=== PATIENT | male | born 1940 | race Caucasian/White ===

== ENCOUNTER 2018-05-04 14:45 | Inpatient (IN) | payer MEDICARE, BC ==
[2018-05-04] MEDS ORDERED: Cyclobenzaprine 10 MG Tab PO ONE (15:20)
--- NOTE | 2018-05-04 15:27 | EDM.PDOC ---
ED HPI GENERAL MEDICAL PROBLEM - General Chief Complaint: Back Pain or Injury Stated Complaint: LOW BACK PAIN Time Seen by Provider: 05/04/18 15:12 Source of Information: Reports: Patient History Limitations: Reports: No Limitations - History of Present Illness INITIAL COMMENTS - FREE TEXT/NARRATIVE: This patient is a 77 year old male that presents to the ER. Patient arrives via EMS. The patient reports that on Sunday he tripped over the rug at home adn fell. Patient reports since falling he has had lower back pain all across the lower back. Patient reports the pain is made worse with bending, twisting, rotating of the trunk. The son reports the patient struggles getting around at home anyways with his history of MS. The reports the patient was prescribed pain medication, but they just picked up the medication this morning. They also report the patient has not taken the pain medication yet and has not taken anything for his back pain. The patient arrived in the ER with back pain complaint. The patient denies urinary/bowel incontinence. They report patient is able to get around, but struggles to get up or do so. Onset Date: 05/01/18 Duration: Day(s): (3) Location: Reports: Back Front/Back Body Image: 1 - pain. Severity: Mild Improves with: Reports: Immobilization Worsens with: Reports: Movement Context: Reports: Trauma Associated Symptoms: Denies: Confusion, Chest Pain, Cough, cough w sputum, Diaphoresis, Fever/Chills, Headaches, Loss of Appetite, Malaise, Nausea/Vomiting , Rash, Seizure, Shortness of Breath, Syncope, Weakness Lower Back Pain Score (Numeric/FACES): 10 - Related Data Allergies Allergy/AdvReac Type Severity Reaction Status Date / Time hydrocodone Allergy Hallucinati Verified 05/04/18 15:07 ons Home Meds: Home Meds Baclofen 10 mg PO BID 05/04/18 [History] Canagliflozin [Invokana] 300 mg PO DAILY 05/04/18 [History] Dalfampridine [Ampyra] 10 mg PO BID 05/04/18 [History] Losartan [Cozaar] 100 mg PO DAILY 05/04/18 [History] Nortriptyline HCl [Pamelor] 25 mg PO BEDTIME 05/04/18 [History] Solifenacin [Vesicare] 10 mg PO DAILY 05/04/18 [History] Zolpidem [Ambien] 10 mg PO BEDTIME PRN 05/04/18 [History] buPROPion [buPROPion XL] 150 mg PO DAILY 05/04/18 [History] sitaGLIPtin Phos/Metformin HCl [Janumet Xr 50-1,000 mg Tablet] 1 each PO BID [History] Social & Family History - Tobacco Use Smoking Status *Q: Never Smoker - Caffeine Use Caffeine Use: Reports: Coffee - Alcohol Use Days Per Week of Alcohol Use: 2 Number of Drinks Per Day: 1 Total Drinks Per Week: 2 - Recreational Drug Use Recreational Drug Use: No ED ROS GENERAL - Review of Systems Review Of Systems: See Below Constitutional: Reports: No Symptoms HEENT: Reports: No Symptoms Respiratory: Reports: No Symptoms Cardiovascular: Reports: No Symptoms Endocrine: Reports: No Symptoms GI/Abdominal: Reports: No Symptoms : Reports: No Symptoms Musculoskeletal: Reports: Back Pain (lower), Muscle Pain (lower back) Skin: Reports: No Symptoms Neurological: Reports: No Symptoms Psychiatric: Reports: No Symptoms Hematologic/Lymphatic: Reports: No Symptoms Immunologic: Reports: No Symptoms ED EXAM,LOWER BACK PAIN/INJURY - Physical Exam Exam: See Below Exam Limited By: No Limitations General Appearance: Alert, WD/WN, No Apparent Distress Eye Exam: Bilateral Eye: PERRL Ears: Normal External Exam (left ear. rigth ear deformed), Normal Canal, Hearing Grossly Normal, Normal TMs (left ear) Nose: Normal Inspection, Normal Mucosa, No Blood Throat/Mouth: Normal Inspection, Normal Lips, Normal Teeth, Normal Gums, Normal Oropharynx, Normal Voice, No Airway Compromise Head: Atraumatic, Normocephalic Neck: Normal Inspection, Supple, Non-Tender, Full Range of Motion Respiratory/Chest: No Respiratory Distress, Lungs Clear, Normal Breath Sounds, No Accessory Muscle Use, Chest Non-Tender Cardiovascular: Normal Peripheral Pulses, Regular Rate, Rhythm, No Edema, No Gallop, No JVD, No Murmur, No Rub GI/Abdominal: Normal Bowel Sounds, Soft, Non-Tender, No Organomegaly, No Distention, No Abnormal Bruit, No Mass, Pelvis Stable Back Exam: Normal Inspection, Full Range of Motion (with pain all across lower back with bending, twisting, rotating of the trunk. ). No: Decreased Range of Motion, Muscle Spasm, Paraspinal Tenderness, Vertebral Tenderness Extremities: Normal Inspection, Normal Range of Motion, Non-Tender, Normal Capillary Refill, Pedal Edema (+1) Neurological: Alert, Oriented x 3 Psychiatric: Normal Affect, Normal Mood Skin Exam: Warm, Dry, Intact, Normal Color, No Rash Lymphatic: No Adenopathy Course - Vital Signs Last Recorded V/S: Last Vital Signs Temp 98.0 F 05/04/18 14:56 Pulse 82 05/04/18 14:56 Resp 16 05/04/18 14:56 BP 135/77 05/04/18 14:56 Pulse Ox 95 05/04/18 14:56 - Orders/Labs/Meds Orders: Active Orders 24 hr Category Date Time Status Lumbar Spine 2 or 3V [CR] Stat Exams 05/04/18 15:20 Taken Meds: Medications Discontinued Medications Generic Name Dose Route Start Last Admin Trade Name Freq PRN Reason Stop Dose Admin Cyclobenzaprine HCl 10 mg 05/04/18 15:20 05/04/18 15:26 Flexeril PO 05/04/18 15:21 10 mg ONETIME ONE Administration - Radiology Interpretation Free Text/Narrative:: Lumbar Spine: No fx, no dislocation. - Re-Assessments/Exams Free Text/Narrative Re-Assessment/Exam: 05/04/18 16:13 This patient is not able to go home. He can not move in the stretcher. The patient has not been able to move at home. He has not been able to get up from this chair. He required assistance from his son, but was still unable to move from his chair. The patient is not able to perform his ADLS on his won. The and son are not able to help the patient ambulate or move or perform ADLs.The and son report they are are unable to care for the patient at home. I will admit the patient and help control his pain, will consult with social cervices about other possible living situations. The patient also has MS and has declining in mobility per family. Departure - Departure Time of Disposition: 15:30 Disposition: Admitted As Inpatient 67 Condition: Fair Clinical Impression: Adult failure to thrive Lumbar strain Qualifiers: Encounter type: initial encounter Qualified Code(s): S39.012A - Strain of muscle, fascia and tendon of lower back, initial encounter - Discharge Information *PRESCRIPTION DRUG MONITORING PROGRAM REVIEWED*: No *COPY OF PRESCRIPTION DRUG MONITORING REPORT IN PATIENT CURTIS: No Instructions: Low Back Sprain, Muscle Strain, [id number] Forms: ED Department Discharge - My Orders Last 24 Hours: My Active Orders 05/04/18 15:20 Lumbar Spine 2 or 3V [CR] Stat - Assessment/Plan Last 24 Hours: My Active Orders 05/04/18 15:20 Lumbar Spine 2 or 3V [CR] Stat Plan: PLEASE SEE RN NOTE FOR PFSH. PLEASE USE ER H&P FOR ADMIT H&P
[2018-05-04] MEDS ORDERED: Acetaminophen 325 MG Tab PO PRN (18:43)
[2018-05-04] MEDS ORDERED: Morphine 2 MG/ML Syringe IVPUSH PRN (18:43)
[2018-05-04] MEDS ORDERED: Zolpidem 5 MG Tab PO PRN (18:43)
[2018-05-04] MEDS ORDERED: Ibuprofen 200 MG Tab PO PRN (18:43)
[2018-05-04] MEDS ORDERED: Docusate Sodium 100 MG Cap PO PRN (18:43)
[2018-05-04] MEDS ORDERED: Ondansetron 4 MG/2 ML SDV IV PRN (18:43)
[2018-05-04] MEDS ORDERED: Diphtheria,Pertussis(Acell),Tetanus Vaccine 0.5 ML Syringe IM ONE (20:00)
[2018-05-04] MEDS: DALFAMPRIDINE 10 MG PO SCH (20:07)
[2018-05-04] MEDS: Mirtazapine 15 MG Tab PO SCH (20:08)
[2018-05-04] MEDS: Baclofen 10 MG Tab PO SCH (20:08)
[2018-05-04] MEDS: Trospium 20 MG Tab PO SCH (20:08)
[2018-05-04] MEDS: Enoxaparin 40 MG/0.4 ML Syringe SUBCUT SCH (20:08)
[2018-05-05] MEDS ORDERED: Non-Formulary Medication 1 Each (Omega-3/Dha/Epa/Fish Oil [Omega-3 Fish Oil 1,200 Mg Sfgl] PO SCH (08:00)
[2018-05-05] MEDS: Aspirin 325 MG Tab PO SCH (08:05)
[2018-05-05 08:08] LABS: CHLORIDE,CL 103 mEq/L (98-106); SODIUM,NA 142 mEq/L (136-145)
[2018-05-05] MEDS: Losartan 100 MG Tab PO SCH (08:09)
[2018-05-05] MEDS: DALFAMPRIDINE 10 MG PO SCH ×2 (08:10→20:03)
[2018-05-05] MEDS: CANAGLIFLOZIN 300 MG PO SCH (08:10)
[2018-05-05] MEDS: Baclofen 10 MG Tab PO SCH ×2 (08:10→20:02)
[2018-05-05] MEDS: Multivitamin Tab PO SCH (08:11)
[2018-05-05] MEDS: Polyethylene Glycol 3350 Powder 17 GM Packet PO SCH (08:11)
[2018-05-05] MEDS: Trospium 20 MG Tab PO SCH ×2 (08:11→20:02)
[2018-05-05] MEDS: Metoprolol Succinate 100 MG Tab.ER PO SCH (08:11)
[2018-05-05] MEDS: Cholecalciferol (Vitamin D3) 1,000 Unit Tab PO SCH (08:11)
[2018-05-05] MEDS: buPROPion 150 MG Tab.ER PO SCH (08:12)
[2018-05-05] MEDS: traMADol 50 MG Tab PO PRN ×2 (08:20→17:13)
[2018-05-05] MEDS ORDERED: Bacitracin Oint 28.35 GM Tube ONE (10:10)
--- NOTE | 2018-05-05 12:26 | PCM.PN ---
- General Info Date of Service: 05/05/18 Subjective Update: This patient is a 77 year old admitted for back pain, immobility, vulerable adult. Functional Status: Reports: Tolerating Diet, Other (Patient reports still havintg a lot of pain. He says after taking pain medication that it does improve some. ). Denies: Ambulating - Review of Systems General: Reports: Weakness (generalized. ) HEENT: Reports: No Symptoms Pulmonary: Reports: No Symptoms Cardiovascular: Reports: No Symptoms Gastrointestinal: Reports: No Symptoms Genitourinary: Reports: No Symptoms Musculoskeletal: Reports: Back Pain Skin: Reports: No Symptoms Neurological: Reports: No Symptoms Psychiatric: Reports: No Symptoms - Patient Data Vitals - Most Recent: Last Vital Signs Temp 97.6 F 05/05/18 07:55 Pulse 74 05/05/18 08:11 Resp 16 05/05/18 07:55 BP 132/81 05/05/18 08:11 Pulse Ox 97 05/05/18 07:55 Weight - Most Recent: 224 lb 4.8 oz Lab Results Last 24 Hours: Laboratory Results - last 24 hr 05/05/18 05/05/18 Range/Units 07:44 07:44 WBC 8.5 (5.0-10.0) 10^3/uL RBC 5.12 (4.50-6.00) 10^6/uL Hgb 15.5 (14.0-18.0) g/dL Hct 47.2 (40.0-54.0) % MCV 92.2 (82.0-94.0) fL MCH 30.3 (27.0-32.0) pg MCHC 32.8 L (33.0-38.0) g/dL RDW Coeff of Deng 13.8 (11.0-15.0) % Plt Count 180 (150-400) 10^3/uL Neut % (Auto) 61.5 (35-85) % Lymph % (Auto) 22.5 (10-55) % [place] % (Auto) 11.4 (0-16) % Eos % (Auto) 4.4 (0-5) % Baso % (Auto) 0.2 (0-3) % Neut # (Auto) 5.22 (1.80-7.00) 10^3/uL Lymph # (Auto) 1.91 (1.00-4.80) 10^3/uL [place] # (Auto) 0.97 H (0.00-0.80) 10^3/uL Eos # (Auto) 0.37 (0.00-0.45) 10^3/uL Baso # (Auto) 0.02 10^3/uL Sodium 142 (136-145) mEq/L Potassium 4.1 (3.5-5.0) mEq/L Chloride 103 (98-106) mEq/L Carbon Dioxide 32 (21-32) mmol/L BUN 13 (7-18) mg/dL Creatinine 1.1 (0.7-1.3) mg/dL Est Cr Clr Drug Dosing 62.71 mL/min Estimated GFR (MDRD) > 60 (>=60) mL/min Glucose 108 H (75-99) mg/dL Calcium 9.1 (8.4-10.1) mg/dL Total Bilirubin 0.9 (0.0-1.0) mg/dL AST 25 (15-37) U/L ALT 32 (12-78) U/L Alkaline Phosphatase 63 (46-116) U/L Total Protein 7.1 (6.4-8.2) g/dL Albumin 3.1 L (3.4-5.0) g/dL Med Orders - Current: Current Medications Acetaminophen (Tylenol) 650 mg PO Q4H PRN PRN Reason: Pain (Mild 1-3)/fever Aspirin (Aspirin) 325 mg PO DAILY [facility] Last Admin: 05/05/18 08:05 Dose: 325 mg Bacitracin (Bacitracin Oint) 0 gm TOP TID [facility] Baclofen (Lioresal) 10 mg PO BID [facility] Last Admin: 05/05/18 08:10 Dose: 10 mg Bupropion HCl (Wellbutrin Xl) 150 mg PO DAILY [facility] Last Admin: 05/05/18 08:12 Dose: 150 mg Cholecalciferol (Vitamin D3) 1,000 units PO DAILY [facility] Last Admin: 05/05/18 08:11 Dose: 1,000 units Docusate Sodium (Colace) 100 mg PO BID PRN PRN Reason: Constipation Enoxaparin Sodium (Lovenox) 40 mg SUBCUT Q24H [facility] Last Admin: 05/04/18 20:08 Dose: 40 mg Ibuprofen (Motrin) 600 mg PO Q6H PRN PRN Reason: Pain (mild 1-3) Losartan Potassium (Cozaar) 100 mg PO DAILY [facility] Last Admin: 05/05/18 08:09 Dose: 100 mg Metoprolol Succinate (Toprol Xl) 100 mg PO DAILY [facility] Last Admin: 05/05/18 08:11 Dose: 100 mg Mirtazapine (Remeron) 30 mg PO BEDTIME [facility] Last Admin: 05/04/18 20:08 Dose: 30 mg Morphine Sulfate (Morphine) 2 mg IVPUSH Q2H PRN PRN Reason: Pain (severe 7-10) Multivitamins/Minerals/Vitamin C (Tab-A-Tarsha) 1 tab PO DAILY [facility] Last Admin: 05/05/18 08:11 Dose: 1 tab Patients Med( Canagliflozin [ Invokana] 300 Mg) 300 mg PO DAILY [facility] Last Admin: 05/05/18 08:10 Dose: 300 mg Patients Own ( Dalfampridine [ Ampyra] 10 Mg) 10 mg PO BID [facility] Last Admin: 05/05/18 08:10 Dose: 10 mg Non-Formulary Medication (Nortriptyline Hcl [Pamelor]) 25 mg PO BEDTIME [facility] Non-Formulary Medication ([place]-3/Dha/Epa/Fish Oil [[place]-3 Fish Oil 1,200 Mg Sfgl]) 1,200 mg PO DAILY [facility] Non-Formulary Medication (Sitagliptin Phos/Metformin Hcl [Janumet Xr 50-1,000 Mg Tablet]) 1 each PO BID [facility] Ondansetron HCl (Zofran) 4 mg IV Q6H PRN PRN Reason: Nausea/Vomiting Polyethylene Glycol (Miralax) 17 gm PO DAILY [facility] Last Admin: 05/05/18 08:11 Dose: 17 gm Tramadol HCl (Ultram) 50 mg PO Q6H PRN PRN Reason: Pain Last Admin: 05/05/18 08:20 Dose: 50 mg Trospium (Sanctura) 20 mg PO BID [facility] Last Admin: 05/05/18 08:11 Dose: 20 mg Zolpidem Tartrate (Ambien) 10 mg PO BEDTIME PRN PRN Reason: Insomnia Discontinued Medications Bacitracin (Bacitracin Oint) Confirm Administered Dose 28.35 gm .ROUTE .STK-MED ONE Stop: 05/05/18 10:11 Last Admin: 05/05/18 10:45 Dose: Not Given Cyclobenzaprine HCl (Flexeril) 10 mg PO ONETIME ONE Stop: 05/04/18 15:21 Last Admin: 05/04/18 15:26 Dose: 10 mg Diphtheria/Tetanus/Acell Pertussis (Adacel) 0.5 ml IM .ONCE ONE Stop: 05/04/18 20:01 Last Admin: 05/04/18 20:36 Dose: 0.5 ml - Exam General: Alert, Oriented, Cooperative, No Acute Distress Neck: Supple Lungs: Clear to Auscultation, Normal Respiratory Effort Cardiovascular: Regular Rate, Regular Rhythm, No Murmurs GI/Abdominal Exam: Soft, Non-Tender, Distended Back Exam: Normal Inspection, Decreased Range of Motion (due to pain of bending and twisting of the trunk). No: Vertebral Tenderness (L1 possible fx per radiology report. But NO tenderness point at L1. ) Extremities: Normal Inspection, Normal Range of Motion, Non-Tender, Normal Capillary Refill, Pedal Edema (+1) Peripheral Pulses: 2+: Radial (L), Radial (R), Posterior Tibial (L), Posterior Tibial (R), Dorsalis Pedis (L), Dorsalis Pedis (R) Skin: Warm, Dry, Intact Neurological: No New Focal Deficit Psy/Mental Status: Alert, Normal Affect, Normal Mood - Problem List Review Problem List Initiated/Reviewed/Updated: Yes - My Orders Last 24 Hours: My Active Orders 05/04/18 15:20 Lumbar Spine 2 or 3V [CR] Stat 05/04/18 17:56 Resuscitation Status Routine 05/04/18 18:43 Patient Status [ADT] Routine Notify Provider Vital Signs [RC] .PRN Oxygen Therapy [RC] .PRN Up With Assistance [RC] .PRN Up to Chair [RC] .PRN Consult to Case Management/Sales Development Associate [CONS] Routine Acetaminophen [Tylenol] 650 mg PO Q4H PRN Docusate Sodium [Colace] 100 mg PO BID PRN Ibuprofen [Motrin] 600 mg PO Q6H PRN Morphine 2 mg IVPUSH Q2H PRN Ondansetron [Zofran] 4 mg IV Q6H PRN Zolpidem [Ambien] 10 mg PO BEDTIME PRN traMADol [Ultram] 50 mg PO Q6H PRN Antiembolic Hose [OM.PC] Per Unit Routine 05/04/18 19:25 Vaccines to be Administered [RC] PER UNIT ROUTINE 05/04/18 20:00 Vital Signs [RC] 0800,2000 Baclofen [Lioresal] 10 mg PO BID Dalfampridine [Ampyra] 10 mg PO BID Enoxaparin [Lovenox] 40 mg SUBCUT Q24H Mirtazapine [Remeron] 30 mg PO BEDTIME Nortriptyline HCl [Pamelor] 25 mg PO BEDTIME Trospium [Sanctura] 20 mg PO BID sitaGLIPtin Phos/Metformin HCl [Janumet Xr 50-1,000 mg Tablet] 1 each PO BID 05/04/18 Dinner Consistent Carbohydrate Diet [DIET] 05/05/18 08:00 Aspirin 325 mg PO DAILY Canagliflozin [Invokana] 300 mg PO DAILY Cholecalciferol (Vitamin D3) [Vitamin D3] 1,000 units PO DAILY Losartan [Cozaar] 100 mg PO DAILY Metoprolol Succinate [Toprol XL] 100 mg PO DAILY Multivitamins [Tab-A-Tarsha] 1 tab PO DAILY Pal[place]-3/DHA/Epa/Fish Oil [Palco-3 Fish Oil 1,200 MG Sfgl] 1,200 mg PO DAILY Polyethylene Glycol 3350 [MiraLAX] 17 gm PO DAILY buPROPion [Wellbutrin XL] 150 mg PO DAILY 05/05/18 11:49 OT Evaluation and Treatment [CONS] Routine PT Evaluation and Treatment [CONS] Routine 05/05/18 11:50 Enema [RC] PRN 05/05/18 14:00 Bacitracin [Bacitracin Oint] 0 gm TOP TID - Plan Plan:: This patient was admitted due to lower back pain and immobility with vulnerable adult. THe patient has had to have a lift with two staff members to lift him from the chair in the room. THe patient is very difficult to move even with two person assist. The patient still reports having lower back pain bialteral sides. He report the pain is okay when sitting in chair, but any movement makes the pain worse. Denies urinary/bowel incontinence, saddle parathesia, numbness, tingling loss of motor to legs from baseline. Labs unremarkable. Will continue plan and have licensed clinical social worker consult. Due to patient back pain, history of MS, and patient inability to get up from chair without significant assistance, I will order an MRI to be done of lumbar.
[2018-05-05] MEDS: Bacitracin Oint 28.35 GM Tube TOP SCH ×2 (13:43→20:02)
[2018-05-05] MEDS: Mirtazapine 15 MG Tab PO SCH (20:02)
[2018-05-05] MEDS: Enoxaparin 40 MG/0.4 ML Syringe SUBCUT SCH (20:03)
[2018-05-06] MEDS: Aspirin 325 MG Tab PO SCH (07:48)
[2018-05-06] MEDS: Bacitracin Oint 28.35 GM Tube TOP SCH ×3 (07:49→19:47)
[2018-05-06] MEDS: CANAGLIFLOZIN 300 MG PO SCH (07:49)
[2018-05-06] MEDS: Losartan 100 MG Tab PO SCH (07:49)
[2018-05-06] MEDS: buPROPion 150 MG Tab.ER PO SCH (07:50)
[2018-05-06] MEDS: DALFAMPRIDINE 10 MG PO SCH ×2 (07:50→19:48)
[2018-05-06] MEDS: Polyethylene Glycol 3350 Powder 17 GM Packet PO SCH (07:51)
[2018-05-06] MEDS: Baclofen 10 MG Tab PO SCH ×2 (07:51→19:46)
[2018-05-06] MEDS: Trospium 20 MG Tab PO SCH ×2 (07:51→19:46)
[2018-05-06] MEDS: Multivitamin Tab PO SCH (07:51)
[2018-05-06] MEDS: Metoprolol Succinate 100 MG Tab.ER PO SCH (07:52)
[2018-05-06] MEDS: Cholecalciferol (Vitamin D3) 1,000 Unit Tab PO SCH (07:52)
[2018-05-06] MEDS: METFORMIN HCL PO SCH ×3 (09:22→23:50)
[2018-05-06] MEDS: SITAGLIPTIN PHOS PO SCH ×3 (09:22→23:50)
[2018-05-06] MEDS: traMADol 50 MG Tab PO PRN (09:23)
[2018-05-06] MEDS: NORTRIPTYLINE HCL 25 MG PO SCH ×2 (09:25→23:49)
--- NOTE | 2018-05-06 12:58 | PCM.PN ---
- General Info Date of Service: 05/06/18 Admission Dx/Problem (Free Text): Back Pain Subjective Update: This patient is a 77 year old admitted for back pain, immobility, vulerable adult. Functional Status: Reports: Pain Controlled, Tolerating Diet, Urinating. Denies : Ambulating - Review of Systems General: Reports: Weakness. Denies: Fever, Fatigue HEENT: Reports: No Symptoms Pulmonary: Denies: Shortness of Breath, Cough Cardiovascular: Denies: Chest Pain, Edema, Lightheadedness Gastrointestinal: Reports: Constipation (constipation resolved. Had fleets enema over the weekend with good results. Since started Miralax and Colace PRN) . Denies: Abdominal Pain, Nausea, Vomiting Genitourinary: Reports: Frequency, Urgency Musculoskeletal: Reports: Back Pain Skin: Reports: No Symptoms Neurological: Reports: Weakness - Patient Data Vitals - Most Recent: Last Vital Signs Temp 96.8 F 05/06/18 08:00 Pulse 75 05/06/18 08:00 Resp 20 05/06/18 08:00 BP 147/83 H 05/06/18 08:00 Pulse Ox 100 05/06/18 08:00 Weight - Most Recent: 224 lb 4.8 oz Lab Results Last 24 Hours: Laboratory Results - last 24 hr 05/05/18 Range/Units 15:33 Urine Color Yellow (YELLOW) Urine Appearance Clear (CLEAR) Urine pH 5.5 (4.5-8.0) Ur Specific [place] 1.015 (1.003-1.020) Urine Protein Trace H (NEGATIVE) mg/dL Urine Glucose (UA) 500 H (NEGATIVE) mg/dL Urine Ketones Trace H (NEGATIVE) mg/dL Urine Occult Blood Trace-intact H (NEGATIVE) Urine Nitrite Negative (NEGATIVE) Urine Bilirubin Negative (NEGATIVE) Urine Urobilinogen 0.2 (0.2-1.0) EU/dL Ur Leukocyte Esterase Negative (NEGATIVE) Urine RBC Not seen (0-5) /HPF Urine WBC Not seen (0-5) /HPF Med Orders - Current: Current Medications Acetaminophen (Tylenol) 650 mg PO Q4H PRN PRN Reason: Pain (Mild 1-3)/fever Aspirin (Aspirin) 325 mg PO DAILY [facility] Last Admin: 05/06/18 07:48 Dose: 325 mg Bacitracin (Bacitracin Oint) 0 gm TOP TID [facility] Last Admin: 05/06/18 07:49 Dose: 1 applic Baclofen (Lioresal) 10 mg PO BID [facility] Last Admin: 05/06/18 07:51 Dose: 10 mg Bupropion HCl (Wellbutrin Xl) 150 mg PO DAILY [facility] Last Admin: 05/06/18 07:50 Dose: 150 mg Cholecalciferol (Vitamin D3) 1,000 units PO DAILY [facility] Last Admin: 05/06/18 07:52 Dose: 1,000 units Docusate Sodium (Colace) 100 mg PO BID PRN PRN Reason: Constipation Last Admin: 05/06/18 09:23 Dose: 100 mg Enoxaparin Sodium (Lovenox) 40 mg SUBCUT Q24H [facility] Last Admin: 05/05/18 20:03 Dose: 40 mg Ibuprofen (Motrin) 600 mg PO Q6H PRN PRN Reason: Pain (mild 1-3) Losartan Potassium (Cozaar) 100 mg PO DAILY [facility] Last Admin: 05/06/18 07:49 Dose: 100 mg Metoprolol Succinate (Toprol Xl) 100 mg PO DAILY [facility] Last Admin: 05/06/18 07:52 Dose: 100 mg Mirtazapine (Remeron) 30 mg PO BEDTIME [facility] Last Admin: 05/05/18 20:02 Dose: 30 mg Morphine Sulfate (Morphine) 2 mg IVPUSH Q2H PRN PRN Reason: Pain (severe 7-10) Multivitamins/Minerals/Vitamin C (Tab-A-Tarsha) 1 tab PO DAILY [facility] Last Admin: 05/06/18 07:51 Dose: 1 tab Patients Med( Canagliflozin [ Invokana] 300 Mg) 300 mg PO DAILY [facility] Last Admin: 05/06/18 07:49 Dose: 300 mg Patients Own ( Dalfampridine [ Ampyra] 10 Mg) 10 mg PO BID [facility] Last Admin: 05/06/18 07:50 Dose: 10 mg Non-Formulary Medication ([place]-3/Dha/Epa/Fish Oil [[place]-3 Fish Oil 1,200 Mg Sfgl]) 1,200 mg PO DAILY [facility] *Ptom Sitagliptin Phos/Metformin Hcl [ Janumet Xr 50-1,000 Mg Tab] 1 each PO BID [facility] Last Admin: 05/06/18 09:22 Dose: 1 each Ptom Nortriptyline Hcl [ Pamelor] 25 Mg 25 mg PO BEDTIME [facility] Ondansetron HCl (Zofran) 4 mg IV Q6H PRN PRN Reason: Nausea/Vomiting Polyethylene Glycol (Miralax) 17 gm PO DAILY [facility] Last Admin: 05/06/18 07:51 Dose: 17 gm Tramadol HCl (Ultram) 50 mg PO Q6H PRN PRN Reason: Pain Last Admin: 05/06/18 09:23 Dose: 50 mg Trospium (Sanctura) 20 mg PO BID [facility] Last Admin: 05/06/18 07:51 Dose: 20 mg Zolpidem Tartrate (Ambien) 10 mg PO BEDTIME PRN PRN Reason: Insomnia Last Admin: 05/05/18 20:02 Dose: 10 mg Discontinued Medications Bacitracin (Bacitracin Oint) Confirm Administered Dose 28.35 gm .ROUTE .STK-MED ONE Stop: 05/05/18 10:11 Last Admin: 05/05/18 10:45 Dose: Not Given Cyclobenzaprine HCl (Flexeril) 10 mg PO ONETIME ONE Stop: 05/04/18 15:21 Last Admin: 05/04/18 15:26 Dose: 10 mg Diphtheria/Tetanus/Acell Pertussis (Adacel) 0.5 ml IM .ONCE ONE Stop: 05/04/18 20:01 Last Admin: 05/04/18 20:36 Dose: 0.5 ml Ptom Nortriptyline Hcl [ Pamelor] 25 Mg 25 mg PO BEDTIME [facility] Last Admin: 05/06/18 09:25 Dose: Not Given - Exam General: Alert, Oriented HEENT: Mucous Membr. Moist/[place] Neck: Supple Lungs: Clear to Auscultation, Normal Respiratory Effort Cardiovascular: Regular Rate, Regular Rhythm GI/Abdominal Exam: Normal Bowel Sounds, Soft, Non-Tender Back Exam: No: Vertebral Tenderness Extremities: Normal Inspection, No Pedal Edema Skin: Warm, Dry Neurological: No New Focal Deficit - Problem List & Annotations (1) Lumbar strain SNOMED Code(s): 222074651 Code(s): S39.012A - STRAIN OF MUSCLE, FASCIA AND TENDON OF LOWER BACK, INIT Status: Acute Current Visit: No Qualifiers: Encounter type: initial encounter Qualified Code(s): S39.012A - Strain of muscle, fascia and tendon of lower back, initial encounter - Problem List Review Problem List Initiated/Reviewed/Updated: Yes - Assessment Assessment:: Lumbar Strain History of MS - Plan Plan:: This patient was admitted due to lower back pain and immobility with vulnerable adult. THe patient has had to have a lift with two staff members to lift him from the chair in the room. THe patient is very difficult to move even with two person assist. The patient still reports having lower back pain bialteral sides. He report the pain is okay when sitting in chair, but any movement makes the pain worse. Denies urinary/bowel incontinence, saddle parathesia, numbness, tingling loss of motor to legs from baseline. Labs unremarkable. Will continue plan and have psychiatric social worker supervisor consult. Due to patient back pain, history of MS, and patient inability to get up from chair without significant assistance, I will order an MRI to be done of lumbar. 05-06-2018 Patient admits to improvement of the pain. No pain with lying in bed, admits that pain increases with getting up from bed or chair. Weakness in legs. No vertebral tenderness with exam, more to the right lateral musculature. Family relates progressive weakness in his legs. Insists in wanting to ambulate at home and per son, falls frequently as a result. is hesitant about admitting that their is concern with his care other than the last month but children say it has worsened over the last year. They express concern about his ability to remain in the home as does have a difficult time caring for him. He does see Dr. Gates for his progressive MS, is currently medicated for this and stable but patient has declined considerably over the last year. MRI is scheduled tomorrow of his lumbar spine due to concern of a questionable compression fracture. Discussed awaiting physical therapy report on his status, may need to obtain a CAST study to determine home safety. Did discuss caregiver burn out as well as is struggling more with ability to care for patient. Children concerned. Tramadol as needed for pain and patient encouraged to utilize to determine if tolerable without side effects.
[2018-05-06] MEDS: Mirtazapine 15 MG Tab PO SCH (19:46)
[2018-05-06] MEDS: Enoxaparin 40 MG/0.4 ML Syringe SUBCUT SCH (19:47)
[2018-05-06] MEDS ORDERED: NORTRIPTYLINE HCL 25 MG PO SCH (20:00)
[2018-05-07] MEDS: Metoprolol Succinate 100 MG Tab.ER PO SCH (08:24)
[2018-05-07] MEDS: Multivitamin Tab PO SCH (08:24)
[2018-05-07] MEDS: Cholecalciferol (Vitamin D3) 1,000 Unit Tab PO SCH (08:24)
[2018-05-07] MEDS: Polyethylene Glycol 3350 Powder 17 GM Packet PO SCH (08:24)
[2018-05-07] MEDS: Losartan 100 MG Tab PO SCH (08:24)
[2018-05-07] MEDS: Baclofen 10 MG Tab PO SCH (08:24)
[2018-05-07] MEDS: buPROPion 150 MG Tab.ER PO SCH (08:25)
[2018-05-07] MEDS: Bacitracin Oint 28.35 GM Tube TOP SCH (08:25)
[2018-05-07] MEDS: Aspirin 325 MG Tab PO SCH (08:25)
[2018-05-07] MEDS: Trospium 20 MG Tab PO SCH (08:25)
[2018-05-07] MEDS: SITAGLIPTIN PHOS PO SCH (08:26)
[2018-05-07] MEDS: METFORMIN HCL PO SCH (08:26)
[2018-05-07] MEDS: CANAGLIFLOZIN 300 MG PO SCH (08:27)
[2018-05-07] MEDS: DALFAMPRIDINE 10 MG PO SCH (08:27)
--- NOTE | 2018-05-07 20:21 | PCM.DCSUM1 ---
Discharge Summary - Hospital Course Free Text/Narrative:: Zak is a 77 year old who was admitted from the ER with complaints of low back pain. He had been having issues with back pain for about a month, had been on muscle relaxants. Patient had initially had back pain after sitting in a reclining vibrating chair. Now has fallen after tripping over a rug. Patient states pain is worse with bending, twisting and getting up from the chair. Patient does have a history of MS and has been struggling more since the fall. He was prescribed pain medication but did not pick it up until day of presentation to the ER. Xrays taken with concern of compression fracture of lumbar spine. Admitted for pain control, physical therapy and consideration for placement if needed. Diagnosis: Stroke: No Modified Jorge A Scale: No Symptoms at All Modified [place] Scale Score: 0 - Discharge Data Discharge Date: 05/07/18 Discharge Disposition: DC/Tfer W/I Hosp To Swing Condition: Good - Discharge Diagnosis/Problem(s) (1) Lumbar strain SNOMED Code(s): 182305425 ICD Code: S39.012A - STRAIN OF MUSCLE, FASCIA AND TENDON OF LOWER BACK, INIT Status: Acute Qualifiers: Encounter type: initial encounter Qualified Code(s): S39.012A - Strain of muscle, fascia and tendon of lower back, initial encounter - Patient Summary/Data Complications: none Consults: Consultations 05/04/18 18:43 Consult to Case Management/Commercial Drafter [CONS] Routine 05/05/18 11:49 OT Evaluation and Treatment [CONS] Routine PT Evaluation and Treatment [CONS] Routine Hospital Course: Patient has been making slow progress with ambulating/exercises. He denies any back pain today, has been pain free for 24 hours. Had MRI today of lumbar spine. Family conference was held with patient, and son and daughter. Children are concerned about 's ability to care for him at home any longer as he has been struggling more over the last year, falling more. Patient has been resistant to any placement or assistance. Is working with PT, making small strides. PT unsure if can safely discharge home. May need to consider a CAST study for home safety. Transfer to swing bed status for ongoing PT and determination if able to return home. - Discharge Plan *PRESCRIPTION DRUG MONITORING PROGRAM REVIEWED*: No *COPY OF PRESCRIPTION DRUG MONITORING REPORT IN PATIENT CURTIS: No Home Medications: Home Meds Aspirin 325 mg PO DAILY 05/04/18 [History] Baclofen 10 mg PO BID 05/04/18 [History] Canagliflozin [Invokana] 300 mg PO DAILY 05/04/18 [History] Cholecalciferol (Vitamin D3) [Vitamin D3] 1,000 units PO DAILY 05/04/18 [History ] Cyclobenzaprine HCl 10 mg PO TID PRN 05/04/18 [History] Dalfampridine [Ampyra] 10 mg PO BID 05/04/18 [History] Losartan [Cozaar] 100 mg PO DAILY 05/04/18 [History] Metoprolol Succinate 100 mg PO DAILY 05/04/18 [History] Mirtazapine 30 mg PO DAILY 05/04/18 [History] Multivitamin with Minerals [Multiple Vitamin] 1 tab PO DAILY 05/04/18 [History] Nortriptyline HCl [Pamelor] 25 mg PO BEDTIME 05/04/18 [History] [place]-3/DHA/Epa/Fish Oil [[place]-3 Fish Oil 1,200 MG Sfgl] 1,200 mg PO DAILY [History] Solifenacin [Vesicare] 10 mg PO DAILY 05/04/18 [History] Zolpidem [Ambien] 10 mg PO BEDTIME PRN 05/04/18 [History] buPROPion [buPROPion XL] 150 mg PO DAILY 05/04/18 [History] sitaGLIPtin Phos/Metformin HCl [Janumet Xr 50-1,000 mg Tablet] 1 each PO BID [History] traMADol HCl [Tramadol HCl] 50 mg PO Q6H PRN 05/04/18 [History] Patient Handouts: Low Back Sprain, Muscle Strain, [id number] Forms: ED Department Discharge Referrals: Karson Tinoco MD [Primary Care Provider] - - Discharge Summary/Plan Comment DC Time >30 min.: No Discharge Summary/Plan Comment: Transfer to swing bed status for ongoing physical therapy. - General Info Date of Service: 05/07/18 Admission Dx/Problem (Free Text: Back Pain Functional Status: Reports: Pain Controlled, Tolerating Diet, Ambulating (short distances with the walker) - Review of Systems General: Reports: Weakness, Fatigue HEENT: Reports: No Symptoms Pulmonary: Denies: Shortness of Breath, Cough Cardiovascular: Denies: Chest Pain, Edema, Lightheadedness Gastrointestinal: Denies: Abdominal Pain, Nausea, Vomiting Genitourinary: Reports: Frequency, Urgency Musculoskeletal: Reports: Back Pain (denies back pain today) Skin: Reports: No Symptoms Neurological: Reports: Weakness - Patient Data Vitals - Most Recent: Last Vital Signs Temp 96.6 F 05/07/18 07:28 Pulse 78 05/07/18 08:24 Resp 20 05/07/18 07:28 BP 127/72 05/07/18 08:24 Pulse Ox 97 05/07/18 07:28 Weight - Most Recent: 224 lb 4.8 oz Med Orders - Current: Current Medications Discontinued Medications Acetaminophen (Tylenol) 650 mg PO Q4H PRN PRN Reason: Pain (Mild 1-3)/fever Last Admin: 05/06/18 13:15 Dose: 650 mg Aspirin (Aspirin) 325 mg PO DAILY [facility] Last Admin: 05/07/18 08:25 Dose: 325 mg Bacitracin (Bacitracin Oint) 0 gm TOP TID [facility] Last Admin: 05/07/18 08:25 Dose: 1 applic Bacitracin (Bacitracin Oint) Confirm Administered Dose 28.35 gm .ROUTE .STK-MED ONE Stop: 05/05/18 10:11 Last Admin: 05/05/18 10:45 Dose: Not Given Baclofen (Lioresal) 10 mg PO BID [facility] Last Admin: 05/07/18 08:24 Dose: 10 mg Bupropion HCl (Wellbutrin Xl) 150 mg PO DAILY [facility] Last Admin: 05/07/18 08:25 Dose: 150 mg Cholecalciferol (Vitamin D3) 1,000 units PO DAILY [facility] Last Admin: 05/07/18 08:24 Dose: 1,000 units Cyclobenzaprine HCl (Flexeril) 10 mg PO ONETIME ONE Stop: 05/04/18 15:21 Last Admin: 05/04/18 15:26 Dose: 10 mg Diphtheria/Tetanus/Acell Pertussis (Adacel) 0.5 ml IM .ONCE ONE Stop: 05/04/18 20:01 Last Admin: 05/04/18 20:36 Dose: 0.5 ml Docusate Sodium (Colace) 100 mg PO BID PRN PRN Reason: Constipation Last Admin: 05/06/18 09:23 Dose: 100 mg Enoxaparin Sodium (Lovenox) 40 mg SUBCUT Q24H [facility] Last Admin: 05/06/18 19:47 Dose: 40 mg Ibuprofen (Motrin) 600 mg PO Q6H PRN PRN Reason: Pain (mild 1-3) Losartan Potassium (Cozaar) 100 mg PO DAILY [facility] Last Admin: 05/07/18 08:24 Dose: 100 mg Metoprolol Succinate (Toprol Xl) 100 mg PO DAILY [facility] Last Admin: 05/07/18 08:24 Dose: 100 mg Mirtazapine (Remeron) 30 mg PO BEDTIME [facility] Last Admin: 05/06/18 19:46 Dose: 30 mg Morphine Sulfate (Morphine) 2 mg IVPUSH Q2H PRN PRN Reason: Pain (severe 7-10) Multivitamins/Minerals/Vitamin C (Tab-A-Tarsha) 1 tab PO DAILY [facility] Last Admin: 05/07/18 08:24 Dose: 1 tab Patients Med( Canagliflozin [ Invokana] 300 Mg) 300 mg PO DAILY [facility] Last Admin: 05/07/18 08:27 Dose: 300 mg Patients Own ( Dalfampridine [ Ampyra] 10 Mg) 10 mg PO BID [facility] Last Admin: 05/07/18 08:27 Dose: 10 mg Ptom Nortriptyline Hcl [ Pamelor] 25 Mg 25 mg PO BEDTIME [facility] Last Admin: 05/06/18 23:49 Dose: Not Given Non-Formulary Medication ([place]-3/Dha/Epa/Fish Oil [[place]-3 Fish Oil 1,200 Mg Sfgl]) 1,200 mg PO DAILY [facility] Last Admin: 05/07/18 14:29 Dose: Not Given *Ptom Sitagliptin Phos/Metformin Hcl [ Janumet Xr 50-1,000 Mg Tab] 1 each PO BID [facility] Last Admin: 05/07/18 08:26 Dose: 1 each Ptom Nortriptyline Hcl [ Pamelor] 25 Mg 25 mg PO BEDTIME [facility] Last Admin: 05/06/18 19:48 Dose: 25 mg Ondansetron HCl (Zofran) 4 mg IV Q6H PRN PRN Reason: Nausea/Vomiting Polyethylene Glycol (Miralax) 17 gm PO DAILY [facility] Last Admin: 05/07/18 08:24 Dose: 17 gm Tramadol HCl (Ultram) 50 mg PO Q6H PRN PRN Reason: Pain Last Admin: 05/06/18 09:23 Dose: 50 mg Trospium (Sanctura) 20 mg PO BID [facility] Last Admin: 05/07/18 08:25 Dose: 20 mg Zolpidem Tartrate (Ambien) 10 mg PO BEDTIME PRN PRN Reason: Insomnia Last Admin: 05/05/18 20:02 Dose: 10 mg - Exam General: Reports: Alert, Oriented HEENT: Reports: Mucous Membr. Moist/[place] Neck: Reports: Supple Lungs: Reports: Clear to Auscultation, Normal Respiratory Effort Cardiovascular: Reports: Regular Rate, Regular Rhythm GI/Abdominal Exam: Normal Bowel Sounds, Soft, Non-Tender Back Exam: Denies: Vertebral Tenderness Extremities: Normal Inspection, No Pedal Edema, Other (weakness noted in lower extremity) Skin: Reports: Warm, Dry Neurological: Reports: No New Focal Deficit
== END 2018-05-07 10:54 | disposition swing bed (61) | DRG 563 ==
LOC: CC.ED 14:45 → CC.MS 18:25
PROVIDERS: ADMIT Nurse Practitioner; ATTEND Family Medicine
DX: S39.012A Strain of muscle, fascia and tendon of lower back, initial encounter (principal); W01.0XXA Fall on same level from slipping, tripping and stumbling without subsequent striking against object, initial encounter; G35 Multiple sclerosis; R62.7 Adult failure to thrive; K59.00 Constipation, unspecified; R35.0 Frequency of micturition; M54.5 Low back pain; R39.15 Urgency of urination; Z88.5 Allergy status to narcotic agent; Z79.899 Other long term (current) drug therapy; Z79.82 Long term (current) use of aspirin
CPT/HCPCS: 36415; 72100; 72148; 80053; 81001; 85025; 90471; 90715; 97162-GP; 99285; A9270-GY; J1650

== ENCOUNTER 2018-05-07 11:02 | Inpatient (IN) | payer MEDICARE, BC ==
[2018-05-07] MEDS ORDERED: Ondansetron 4 MG/2 ML SDV IV PRN (13:49)
[2018-05-07] MEDS ORDERED: Morphine 2 MG/ML Syringe IVPUSH PRN (13:49)
[2018-05-07] MEDS ORDERED: Acetaminophen 325 MG Tab PO PRN (13:49)
[2018-05-07] MEDS ORDERED: Ibuprofen 200 MG Tab PO PRN (13:49)
[2018-05-07] MEDS ORDERED: traMADol 50 MG Tab PO PRN (13:49)
[2018-05-07] MEDS ORDERED: Docusate Sodium 100 MG Cap PO PRN (13:49)
[2018-05-07] MEDS: Bacitracin Oint 28.35 GM Tube TOP SCH ×2 (17:16→21:18)
[2018-05-07] MEDS: DALFAMPRIDINE 10 MG PO SCH (21:19)
[2018-05-07] MEDS: Baclofen 10 MG Tab PO SCH (21:21)
[2018-05-07] MEDS: Mirtazapine 15 MG Tab PO SCH (21:22)
[2018-05-07] MEDS: Enoxaparin 40 MG/0.4 ML Syringe SUBCUT SCH (21:22)
[2018-05-07] MEDS: Trospium 20 MG Tab PO SCH (21:23)
[2018-05-07] MEDS: JANUMET PO SCH (21:25)
[2018-05-07] MEDS: NORTRIPTYLINE 25 MG PO SCH (21:25)
[2018-05-07] MEDS: Zolpidem 5 MG Tab PO PRN (22:45)
[2018-05-08] MEDS ORDERED: Non-Formulary Medication 1 Each (Omega-3/Dha/Epa/Fish Oil [Omega-3 Fish Oil 1,200 Mg Sfgl] PO SCH (08:00)
[2018-05-08] MEDS: Losartan 100 MG Tab PO SCH (08:09)
[2018-05-08] MEDS: Multivitamin Tab PO SCH (08:09)
[2018-05-08] MEDS: Aspirin 325 MG Tab PO SCH (08:10)
[2018-05-08] MEDS: Polyethylene Glycol 3350 Powder 17 GM Packet PO SCH (08:10)
[2018-05-08] MEDS: Baclofen 10 MG Tab PO SCH ×2 (08:10→19:34)
[2018-05-08] MEDS: Metoprolol Succinate 100 MG Tab.ER PO SCH (08:10)
[2018-05-08] MEDS: Trospium 20 MG Tab PO SCH ×2 (08:10→19:34)
[2018-05-08] MEDS: buPROPion 150 MG Tab.ER PO SCH (08:10)
[2018-05-08] MEDS: Bacitracin Oint 28.35 GM Tube TOP SCH ×3 (08:10→19:35)
[2018-05-08] MEDS: DALFAMPRIDINE 10 MG PO SCH ×2 (08:12→19:35)
[2018-05-08] MEDS: Cholecalciferol (Vitamin D3) 1,000 Unit Tab PO SCH (08:13)
[2018-05-08] MEDS: INVOKANA 300 MG PO SCH (08:14)
[2018-05-08] MEDS: JANUMET PO SCH ×2 (08:15→19:36)
[2018-05-08] MEDS: Mirtazapine 15 MG Tab PO SCH (19:34)
[2018-05-08] MEDS: Enoxaparin 40 MG/0.4 ML Syringe SUBCUT SCH (19:34)
[2018-05-08] MEDS: Menthol/Zinc Oxide Ointment 113 GM Tube TOP SCH (19:34)
[2018-05-08] MEDS: NORTRIPTYLINE 25 MG PO SCH (19:36)
[2018-05-08] MEDS: Zolpidem 5 MG Tab PO PRN (22:26)
[2018-05-09] MEDS: buPROPion 150 MG Tab.ER PO SCH (08:14)
[2018-05-09] MEDS: Multivitamin Tab PO SCH (08:14)
[2018-05-09] MEDS: Baclofen 10 MG Tab PO SCH ×2 (08:15→19:32)
[2018-05-09] MEDS: Trospium 20 MG Tab PO SCH ×2 (08:15→19:32)
[2018-05-09] MEDS: Cholecalciferol (Vitamin D3) 1,000 Unit Tab PO SCH (08:15)
[2018-05-09] MEDS: Bacitracin Oint 28.35 GM Tube TOP SCH ×3 (08:15→22:12)
[2018-05-09] MEDS: Losartan 100 MG Tab PO SCH (08:15)
[2018-05-09] MEDS: Metoprolol Succinate 100 MG Tab.ER PO SCH (08:15)
[2018-05-09] MEDS: Menthol/Zinc Oxide Ointment 113 GM Tube TOP SCH ×2 (08:16→19:32)
[2018-05-09] MEDS: DALFAMPRIDINE 10 MG PO SCH ×2 (08:17→19:32)
[2018-05-09] MEDS: Polyethylene Glycol 3350 Powder 17 GM Packet PO SCH (08:18)
[2018-05-09] MEDS: INVOKANA 300 MG PO SCH (08:18)
[2018-05-09] MEDS: JANUMET PO SCH ×2 (08:19→19:32)
[2018-05-09] MEDS: Aspirin 325 MG Tab PO SCH (08:29)
[2018-05-09] MEDS ORDERED: Aspirin 325 MG Tab ONE ×2 (08:30→08:44)
[2018-05-09] MEDS: Mirtazapine 15 MG Tab PO SCH (19:32)
[2018-05-09] MEDS: Enoxaparin 40 MG/0.4 ML Syringe SUBCUT SCH (19:32)
[2018-05-09] MEDS: NORTRIPTYLINE 25 MG PO SCH (19:33)
[2018-05-09] MEDS: Zolpidem 5 MG Tab PO PRN (22:29)
[2018-05-10] MEDS ORDERED: Nystatin Topical Powder 15 GM Bottle ONE (04:07)
[2018-05-10] MEDS ORDERED: Nystatin Topical Powder 15 GM Bottle TOP SCH (08:00)
[2018-05-10] MEDS: Polyethylene Glycol 3350 Powder 17 GM Packet PO SCH (08:15)
[2018-05-10] MEDS: Aspirin 325 MG Tab PO SCH (08:16)
[2018-05-10] MEDS: Losartan 100 MG Tab PO SCH (08:16)
[2018-05-10] MEDS: Menthol/Zinc Oxide Ointment 113 GM Tube TOP SCH (08:16)
[2018-05-10] MEDS: Baclofen 10 MG Tab PO SCH (08:17)
[2018-05-10] MEDS: DALFAMPRIDINE 10 MG PO SCH (08:17)
[2018-05-10] MEDS: INVOKANA 300 MG PO SCH (08:18)
[2018-05-10] MEDS: Trospium 20 MG Tab PO SCH (08:18)
[2018-05-10] MEDS: Multivitamin Tab PO SCH (08:19)
[2018-05-10] MEDS: Metoprolol Succinate 100 MG Tab.ER PO SCH (08:19)
[2018-05-10] MEDS: Bacitracin Oint 28.35 GM Tube TOP SCH (08:20)
[2018-05-10] MEDS: buPROPion 150 MG Tab.ER PO SCH (08:20)
[2018-05-10] MEDS: Cholecalciferol (Vitamin D3) 1,000 Unit Tab PO SCH (08:20)
[2018-05-10] MEDS: JANUMET PO SCH (09:33)
--- NOTE | 2018-05-12 20:08 | PCM.DCSUM1 ---
Discharge Summary - Hospital Course Free Text/Narrative:: Patient was admitted swing bed for ongoing physical therapy. Patient had initially presented to acute care for back pain. Was unable to transfer well on admission to acute care for slowly improved. He was able to get up and down with less pain after the first few days. MRI was done prior to swing bed. Family conference was also held with concerns of home safety. Son and daughter relate it has been difficult over the last 12 months due to weakness and balance with history of MS. Had fallen twice prior to admission. MS has been slowly progressing. Diagnosis: Stroke: No Modified [place] Scale: No Symptoms at All Modified Jorge A Scale Score: 0 - Discharge Data Discharge Date: 05/10/18 Discharge Disposition: Home, Self-Care 01 Condition: Good - Patient Summary/Data Complications: none Consults: Consultations 05/07/18 13:49 Consult to Case Management/Director Of Distribution [CONS] Routine OT Evaluation and Treatment [CONS] Routine PT Evaluation and Treatment [CONS] Routine Hospital Course: Patient has had slow improvement. Is ambulating with walker and stand by assist. Able to rise from the chair on his own without lifting. Physical therapy does may try it at home and see how he does. MRI did not show acute compression fracture but patient does have severe spinal stenosis. and patient aware and will notify us if would like to arrange neurosurgeon consult for this. Patient will continue with home health care. Nursing to monitor pain level, blood pressure, blood sugars as needed and ability to provide own cares. Physical therapy to provide ongoing strengthening as is homebound and unable to drive at this time due to weakness. Dr. Ellsworth to oversee home health care. - Patient Instructions Diet: Diabetic Diet Activity: As Tolerated - Discharge Plan *PRESCRIPTION DRUG MONITORING PROGRAM REVIEWED*: No *COPY OF PRESCRIPTION DRUG MONITORING REPORT IN PATIENT CURTIS: No Home Medications: Home Meds Aspirin 325 mg PO DAILY 05/04/18 [History] Baclofen 10 mg PO BID 05/04/18 [History] Canagliflozin [Invokana] 300 mg PO DAILY 05/04/18 [History] Cholecalciferol (Vitamin D3) [Vitamin D3] 1,000 units PO DAILY 05/04/18 [History ] Cyclobenzaprine HCl 10 mg PO TID PRN 05/04/18 [History] Dalfampridine [Ampyra] 10 mg PO BID 05/04/18 [History] Losartan [Cozaar] 100 mg PO DAILY 05/04/18 [History] Metoprolol Succinate 100 mg PO DAILY 05/04/18 [History] Mirtazapine 30 mg PO DAILY 05/04/18 [History] Multivitamin with Minerals [Multiple Vitamin] 1 tab PO DAILY 05/04/18 [History] Nortriptyline HCl [Pamelor] 25 mg PO BEDTIME 05/04/18 [History] [place]-3/DHA/Epa/Fish Oil [[place]-3 Fish Oil 1,200 MG Sfgl] 1,200 mg PO DAILY [History] Solifenacin [Vesicare] 10 mg PO DAILY 05/04/18 [History] Zolpidem [Ambien] 10 mg PO BEDTIME PRN 05/04/18 [History] buPROPion [buPROPion XL] 150 mg PO DAILY 05/04/18 [History] sitaGLIPtin Phos/Metformin HCl [Janumet Xr 50-1,000 mg Tablet] 1 each PO BID [History] traMADol HCl [Tramadol HCl] 50 mg PO Q6H PRN 05/04/18 [History] Patient Handouts: Lumbosacral Strain Referrals: [facility] [place] [facility] [place] [Outside] Alanna Londono PA [ED Midlevel Provider] - (Follow up in 2 weeks for recheck) - Discharge Summary/Plan Comment DC Time >30 min.: No Discharge Summary/Plan Comment: Discharge home Home Health Care - General Info Date of Service: 05/10/18 Admission Dx/Problem (Free Text: Adult Failure to Thrive Lumbar strain Functional Status: Reports: Pain Controlled, Tolerating Diet, Ambulating - Review of Systems General: Reports: Weakness. Denies: Fever, Fatigue HEENT: Reports: No Symptoms Pulmonary: Denies: Shortness of Breath, Cough Cardiovascular: Reports: Edema. Denies: Chest Pain, Lightheadedness Gastrointestinal: Denies: Abdominal Pain, Nausea, Vomiting Genitourinary: Reports: Urgency Musculoskeletal: Reports: Other (muscle weakness) Neurological: Reports: Weakness - Patient Data Vitals - Most Recent: Last Vital Signs Temp 96.4 F 05/10/18 07:27 Pulse 64 05/10/18 08:19 Resp 16 05/10/18 07:27 BP 126/79 05/10/18 08:19 Pulse Ox 94 L 05/10/18 07:27 Weight - Most Recent: 224 lb Med Orders - Current: Current Medications Discontinued Medications Acetaminophen (Tylenol) 650 mg PO Q4H PRN PRN Reason: Pain (Mild 1-3)/fever Aspirin (Aspirin) 325 mg PO DAILY [facility] Last Admin: 05/10/18 08:16 Dose: 325 mg Aspirin (Aspirin) Confirm Administered Dose 975 mg .ROUTE .STK-MED ONE Stop: 05/09/18 08:31 Last Admin: 05/09/18 08:37 Dose: Not Given Aspirin (Aspirin) Confirm Administered Dose 325 mg .ROUTE .STK-MED ONE Stop: 05/09/18 08:45 Last Admin: 05/09/18 08:55 Dose: Not Given Bacitracin (Bacitracin Oint) 0 gm TOP TID [facility] Last Admin: 05/10/18 08:20 Dose: 1 applic Baclofen (Lioresal) 10 mg PO BID [facility] Last Admin: 05/10/18 08:17 Dose: 10 mg Bupropion HCl (Wellbutrin Xl) 150 mg PO DAILY [facility] Last Admin: 05/10/18 08:20 Dose: 150 mg Calamine/Phenol (Calmoseptine) 1 gm TOP BID [facility] Last Admin: 05/10/18 08:16 Dose: 1 applic Cholecalciferol (Vitamin D3) 1,000 units PO DAILY [facility] Last Admin: 05/10/18 08:20 Dose: 1,000 units Docusate Sodium (Colace) 100 mg PO BID PRN PRN Reason: Constipation Enoxaparin Sodium (Lovenox) 40 mg SUBCUT Q24H [facility] Last Admin: 05/09/18 19:32 Dose: 40 mg Ibuprofen (Motrin) 600 mg PO Q6H PRN PRN Reason: Pain (mild 1-3) Losartan Potassium (Cozaar) 100 mg PO DAILY [facility] Last Admin: 05/10/18 08:16 Dose: 100 mg Metoprolol Succinate (Toprol Xl) 100 mg PO DAILY [facility] Last Admin: 05/10/18 08:19 Dose: 100 mg Mirtazapine (Remeron) 30 mg PO BEDTIME [facility] Last Admin: 05/09/18 19:32 Dose: 30 mg Morphine Sulfate (Morphine) 2 mg IVPUSH Q2H PRN PRN Reason: Pain (severe 7-10) Multivitamins/Minerals/Vitamin C (Tab-A-Tarsha) 1 tab PO DAILY [facility] Last Admin: 05/10/18 08:19 Dose: 1 tab Invokana 300 Mg (Own Med) 0 each PO DAILY [facility] Last Admin: 05/10/18 08:18 Dose: 1 each (Dalfampridine [ Ampyra] 10 Mg) Own Med 0 mg PO BID [facility] Last Admin: 05/10/18 08:17 Dose: 10 mg Nortriptyline 25 Mg (Own Med) 0 mg PO BEDTIME [facility] Last Admin: 05/09/18 19:33 Dose: 25 mg Non-Formulary Medication ([place]-3/Dha/Epa/Fish Oil [[place]-3 Fish Oil 1,200 Mg Sfgl]) 1,200 mg PO DAILY [facility] Janumet Xr 50-1000 (Mg Own Med) 0 each PO BID [facility] Last Admin: 05/10/18 09:33 Dose: 1 each Nystatin (Nystop) 0 gm TOP BID [facility] Last Admin: 05/10/18 08:18 Dose: 1 applic Nystatin (Nystop) Confirm Administered Dose 15 gm .ROUTE .STK-MED ONE Stop: 05/10/18 04:08 Last Admin: 05/10/18 05:37 Dose: Not Given Ondansetron HCl (Zofran) 4 mg IV Q6H PRN PRN Reason: Nausea/Vomiting Polyethylene Glycol (Miralax) 17 gm PO DAILY [facility] Last Admin: 05/10/18 08:15 Dose: 17 gm Tramadol HCl (Ultram) 50 mg PO Q6H PRN PRN Reason: Pain Trospium (Sanctura) 20 mg PO BID [facility] Last Admin: 05/10/18 08:18 Dose: 20 mg Zolpidem Tartrate (Ambien) 10 mg PO BEDTIME PRN PRN Reason: Insomnia Last Admin: 05/09/18 22:29 Dose: 10 mg - Exam General: Reports: Alert, Oriented HEENT: Reports: Mucous Membr. Moist/[place] Neck: Reports: Supple Lungs: Reports: Clear to Auscultation, Normal Respiratory Effort Cardiovascular: Reports: Regular Rate, Regular Rhythm GI/Abdominal Exam: Normal Bowel Sounds, Soft, Non-Tender Back Exam: Reports: Normal Inspection. Denies: Paraspinal Tenderness, Vertebral Tenderness Extremities: Normal Inspection, Pedal Edema Skin: Reports: Warm, Dry Neurological: Reports: No New Focal Deficit
== END 2018-05-10 13:50 | disposition home or self-care (01) | DRG 948 ==
LOC: CC.MS 11:02
PROVIDERS: ADMIT Nurse Practitioner; ATTEND Family Medicine
DX: R53.1 Weakness (principal); R62.7 Adult failure to thrive; G35 Multiple sclerosis; Z79.84 Long term (current) use of oral hypoglycemic drugs; Z79.82 Long term (current) use of aspirin; Z79.899 Other long term (current) drug therapy; S39.012A Strain of muscle, fascia and tendon of lower back, initial encounter; W01.0XXA Fall on same level from slipping, tripping and stumbling without subsequent striking against object, initial encounter
CPT/HCPCS: 97110-GP; 97530-GP; A9270-GY; J1650

== ENCOUNTER 2018-12-10 09:31 | Inpatient (IN) | payer MEDICARE, BC, MEDICAID ==
--- NOTE | 2018-12-10 09:58 | EDM.PDOC ---
ED HPI GENERAL MEDICAL PROBLEM - General Chief Complaint: Back Pain or Injury Stated Complaint: back pain, s/p fall Time Seen by Provider: 12/10/18 09:40 Source of Information: Reports: Patient, Family History Limitations: Reports: No Limitations - History of Present Illness INITIAL COMMENTS - FREE TEXT/NARRATIVE: Zak is a 78 year old male who presents to the ED via EMS after having fall in his home. He reports he is status post L2-3 L4-[address] Feliz last week. Reports he was discharged home and has progressively been getting more weak since then. He reports this morning he was attempting to walk to the bathroom, when he "got tangled in his walker" and his legs gave out and he fell. Enroute was c/o significant back pain, but reports since he got off the backboard he no longer has any pain. Denies any symptoms other than weakness. Does report history of MS. 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 He has been receiving home health. Onset: Today, Sudden Onset Date: 12/10/18 Onset Time: 08:20 Duration: Improving Location: Reports: Back Improves with: Reports: Medication Associated Symptoms: Reports: Weakness. 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: Other Medication(s) (Percocet) Middle Back Pain Score (Numeric/FACES): 4 - Related Data Allergies Allergy/AdvReac Type Severity Reaction Status Date / Time hydrocodone Allergy Hallucinati Verified 12/10/18 10:14 ons Home Meds: Home Meds Aspirin 325 mg PO DAILY 05/04/18 [History] Baclofen 10 mg PO BID 05/04/18 [History] Canagliflozin [Invokana] 300 mg PO DAILY 05/04/18 [History] Cholecalciferol (Vitamin D3) [Vitamin D3] 2,000 units PO DAILY 05/04/18 [History ] Dalfampridine [Ampyra] 10 mg PO BID 05/04/18 [History] Losartan [Cozaar] 100 mg PO DAILY 05/04/18 [History] Mirtazapine 30 mg PO DAILY 05/04/18 [History] Multivitamin with Minerals [Multiple Vitamin] 1 tab PO DAILY 05/04/18 [History] Nortriptyline HCl [Pamelor] 25 mg PO BEDTIME 05/04/18 [History] Solifenacin [Vesicare] 10 mg PO DAILY 05/04/18 [History] Zolpidem [Ambien] 10 mg PO BEDTIME PRN 05/04/18 [History] buPROPion [buPROPion XL] 150 mg PO DAILY 05/04/18 [History] sitaGLIPtin Phos/Metformin HCl [Janumet Xr 50-1,000 mg Tablet] 1 tab PO BID [History] Metoprolol Tartrate 100 mg PO DAILY 12/10/18 [History] Modafinil [Provigil] 200 mg PO DAILY 12/10/18 [History] Lenora-3/DHA/Epa/Fish Oil [Lenora-3 Fish Oil 1,000 MG Sfgl] 1,000 mg PO DAILY 02/21 [History] Polyethylene Glycol 3350 [MiraLAX] 17 gm PO DAILY 12/10/18 [History] Sennosides/Docusate Sodium [Senna-Docusate Sodium Tablet] 1 tab PO BID 12/10/18 [History] diazePAM [Valium] 5 mg PO Q6H PRN 12/10/18 [History] oxyCODONE HCl/Acetaminophen [Oxycodone-Acetaminophen 5-325] 1 - 2 tab PO Q4H PRN 12/10/18 [History] Past Medical History HEENT History: Reports: Other (See Below) Other HEENT History: MISSING TEETH, SEVERE DENTAL DECAY Cardiovascular History: Reports: Hypertension Musculoskeletal History: Reports: Back Pain, Chronic Neurological History: Reports: MS Psychiatric History: Reports: Depression Endocrine/Metabolic History: Reports: Diabetes, Type II Social & Family History - Family History Family Medical History: Noncontributory - Tobacco Use Smoking Status *Q: Never Smoker - Caffeine Use Caffeine Use: Reports: Coffee - Recreational Drug Use Recreational Drug Use: No ED ROS GENERAL - Review of Systems Review Of Systems: ROS reveals no pertinent complaints other than HPI. ED EXAM,LOWER BACK PAIN/INJURY - Physical Exam Exam: See Below Exam Limited By: No Limitations General Appearance: Alert, WD/WN, No Apparent Distress Eye Exam: Bilateral Eye: EOMI, PERRL Head: Atraumatic, Normocephalic Neck: Normal Inspection, Supple, Non-Tender, Full Range of Motion Respiratory/Chest: No Respiratory Distress, Lungs Clear, Normal Breath Sounds, No Accessory Muscle Use, Chest Non-Tender Cardiovascular: Normal Peripheral Pulses, Regular Rate, Rhythm, No Gallop, No JVD, No Murmur, No Rub, Other (1+ pitting edema to ankles and pretibial) GI/Abdominal: Normal Bowel Sounds, Soft, Non-Tender, No Organomegaly, No Distention, No Abnormal Bruit, No Mass Back Exam: Normal Inspection, Other (incision to lumbar area, [place] intact, well approximated) Extremities: Normal Inspection, Normal Range of Motion, Normal Capillary Refill , Pedal Edema (1+ pitting), Other (weakness to BLE) Neurological: Alert, Normal Mood/Affect, Normal Dorsiflexion, CN II-XII Intact, Normal Plantar Flexion, Normal Reflexes, No Motor/Sensory Deficits, Oriented x 3 , Other (Generalized weakness) Skin Exam: Other (pressure ulcer to buttocks-surrounding skin blanchable, multiple ulcers to bilateral feet (see nurses note for dimensions) ) Course - Vital Signs Last Recorded V/S: Last Vital Signs Temp 97.8 F 12/10/18 16:00 Pulse 70 12/10/18 16:00 Resp 20 12/10/18 16:00 BP 138/77 12/10/18 16:00 Pulse Ox 97 12/10/18 16:00 - Orders/Labs/Meds Orders: Active Orders 24 hr Category Date Time Status Oxygen Therapy [RC] .PRN Care 12/10/18 11:25 Active Pulse Oximetry [RC] .PRN Care 12/10/18 11:25 Active Vital Signs [RC] 0000,0400,0800,1200,1600,2000 Care 12/10/18 11:25 Active PT Evaluation and Treatment [CONS] Routine Cons 12/10/18 11:25 Active Consistent Carbohydrate Diet [DIET] Diet 12/10/18 Lunch Active Lumbar Spine 2 or 3V [CR] Stat Exams 12/10/18 09:57 Taken Enoxaparin [Lovenox] Med 12/10/18 11:30 Active 40 mg SUBCUT Q24H Sodium Chloride 0.9% [Saline Flush] Med 12/10/18 11:25 Active 10 ml FLUSH ASDIRECTED PRN Saline Lock Insert [OM.PC] Routine Oth 12/10/18 11:25 Ordered Resuscitation Status Routine Resus Stat 12/10/18 11:06 Ordered Medication Orders Aspirin (Aspirin) 325 mg PO DAILY [facility] Baclofen (Lioresal) 10 mg PO BID [facility] Last Admin: 12/10/18 20:13 Dose: 10 mg Bupropion HCl (Wellbutrin Xl) 150 mg PO DAILY [facility] Diazepam (Valium.) 5 mg PO Q6H PRN PRN Reason: Muscle Spasm Enoxaparin Sodium (Lovenox) 40 mg SUBCUT Q24H [facility] Last Admin: 12/10/18 12:36 Dose: 40 mg Insulin Human Lispro (Humalog) 0 unit SUBCUT 0800,1200,1730,2100 [facility]; Protocol Last Admin: 12/10/18 17:36 Dose: 10 unit Admin: 12/10/18 12:18 Dose: Losartan Potassium (Cozaar) 100 mg PO DAILY [facility] Magnesium Hydroxide (Milk Of Magnesia) 30 ml PO BID PRN PRN Reason: Constipation Last Admin: 12/10/18 20:15 Dose: 30 ml Non-Formulary Medication (Canagliflozin [Invokana]) 300 mg PO DAILY [facility] Non-Formulary Medication (Dalfampridine [Ampyra]) 10 mg PO BID [facility] Last Admin: 12/10/18 20:14 Dose: 10 mg Non-Formulary Medication (Metoprolol Tartrate) 100 mg PO DAILY [facility] Non-Formulary Medication (Mirtazapine [Mirtazapine]) 30 mg PO DAILY [facility] Non-Formulary Medication (Modafinil [Provigil]) 200 mg PO DAILY [facility] Non-Formulary Medication (Nortriptyline Hcl [Pamelor]) 25 mg PO BEDTIME [facility] Non-Formulary Medication (Sitagliptin Phos/Metformin Hcl [Janumet Xr 50-1,000 Mg Tablet]) 1 tab PO BID [facility] Non-Formulary Medication (Solifenacin [Vesicare]) 10 mg PO DAILY [facility] Oxycodone/Acetaminophen (Percocet 325-5 Mg) 1 - 2 tab PO Q4H PRN PRN Reason: Pain Last Admin: 12/10/18 20:16 Dose: 2 tab Polyethylene Glycol (Miralax) 17 gm PO DAILY [facility] Senna/Docusate Sodium (Senna Plus) 1 tab PO BID [facility] Last Admin: 12/10/18 20:13 Dose: 1 tab Sodium Chloride (Saline Flush) 10 ml FLUSH ASDIRECTED PRN PRN Reason: Keep Vein Open Zolpidem Tartrate (Ambien) 10 mg PO BEDTIME PRN PRN Reason: Insomnia Labs: Laboratory Tests 12/10/18 12/10/18 12/10/18 Range/Units 10:05 10:05 10:24 WBC 9.5 (5.0-10.0) 10^3/uL RBC 4.54 (4.50-6.00) 10^6/uL Hgb 14.0 (14.0-18.0) g/dL Hct 42.0 (40.0-54.0) % MCV 92.5 (82.0-94.0) fL MCH 30.8 (27.0-32.0) pg MCHC 33.3 (33.0-38.0) g/dL RDW Coeff of Deng 13.3 (11.0-15.0) % Plt Count 260 (150-400) 10^3/uL Neut % (Auto) 68.7 (35-85) % Lymph % (Auto) 17.0 (10-55) % [place] % (Auto) 10.7 (0-16) % Eos % (Auto) 3.4 (0-5) % Baso % (Auto) 0.2 (0-3) % Neut # (Auto) 6.50 (1.80-7.00) 10^3/uL Lymph # (Auto) 1.61 (1.00-4.80) 10^3/uL [place] # (Auto) 1.01 H (0.00-0.80) 10^3/uL Eos # (Auto) 0.32 (0.00-0.45) 10^3/uL Baso # (Auto) 0.02 10^3/uL Sodium 139 (136-145) mEq/L Potassium 4.3 (3.5-5.0) mEq/L Chloride 102 (98-106) mEq/L Carbon Dioxide 30 (21-32) mmol/L BUN 14 (7-18) mg/dL Creatinine 1.0 (0.7-1.3) mg/dL Est Cr Clr Drug Dosing 67.90 mL/min Estimated GFR (MDRD) > 60 (>=60) mL/min Glucose 123 H (75-99) mg/dL Calcium 8.8 (8.4-10.1) mg/dL C-Reactive Protein 5.7 H (0.2-0.8) mg/dL Urine Color Yellow (YELLOW) Urine Appearance Clear (CLEAR) Urine pH 7.0 (4.5-8.0) Ur Specific [place] 1.020 (1.003-1.020) Urine Protein 30 H (NEGATIVE) mg/dL Urine Glucose (UA) >=1000 H (NEGATIVE) mg/dL Urine Ketones 15 H (NEGATIVE) mg/dL Urine Occult Blood Trace-lysed H (NEGATIVE) Urine Nitrite Negative (NEGATIVE) Urine Bilirubin Negative (NEGATIVE) Urine Urobilinogen 1.0 (0.2-1.0) EU/dL Ur Leukocyte Esterase Negative (NEGATIVE) Urine RBC 0-5 (0-5) /HPF Urine WBC 5-10 H (0-5) /HPF Ur Squamous Epith Cells Few H (NOT SEEN) /HPF Meds: Medications Generic Name Dose Route Start Last Admin Trade Name Freq PRN Reason Stop Dose Admin Aspirin 325 mg 12/11/18 08:00 Aspirin PO DAILY [facility] Baclofen 10 mg 12/10/18 20:00 12/10/18 20:13 Lioresal PO 10 mg BID [facility] Administration Bupropion HCl 150 mg 12/11/18 08:00 Wellbutrin Xl PO DAILY [facility] Diazepam 5 mg 12/10/18 11:58 Valium. PO Q6H PRN Muscle Spasm Enoxaparin Sodium 40 mg 12/10/18 11:30 12/10/18 12:36 Lovenox SUBCUT 40 mg Q24H [facility] Administration Insulin Human Lispro 0 unit 12/10/18 12:00 12/10/18 17:36 Humalog SUBCUT 10 unit 0800,1200,1730,2100 [facility] Administration Protocol Losartan Potassium 100 mg 12/11/18 08:00 Cozaar PO DAILY [facility] Magnesium Hydroxide 30 ml 12/10/18 18:34 12/10/18 20:15 Milk Of Magnesia PO 30 ml BID PRN Administration Constipation Non-Formulary Medication 300 mg 12/11/18 08:00 Canagliflozin [Invokana] PO DAILY [facility] Non-Formulary Medication 10 mg 12/10/18 20:00 12/10/18 20:14 Dalfampridine [Ampyra] PO 10 mg BID [facility] Administration Non-Formulary Medication 100 mg 12/11/18 08:00 Metoprolol Tartrate PO DAILY [facility] Non-Formulary Medication 30 mg 12/11/18 08:00 Mirtazapine [Mirtazapine] PO DAILY [facility] Non-Formulary Medication 200 mg 12/11/18 08:00 Modafinil [Provigil] PO DAILY [facility] Non-Formulary Medication 25 mg 12/10/18 20:00 Nortriptyline Hcl [Pamelor] PO BEDTIME [facility] Non-Formulary Medication 1 tab 12/10/18 20:00 Sitagliptin Phos/Metformin Hcl [Janumet Xr 50-1,000 Mg Tablet] PO BID [facility] Non-Formulary Medication 10 mg 12/11/18 08:00 Solifenacin [Vesicare] PO DAILY [facility] Oxycodone/Acetaminophen 1 - 2 tab 12/10/18 11:58 12/10/18 20:16 Percocet 325-5 Mg PO 2 tab Q4H PRN Administration Pain Polyethylene Glycol 17 gm 12/11/18 08:00 Miralax PO DAILY [facility] Senna/Docusate Sodium 1 tab 12/10/18 20:00 12/10/18 20:13 Senna Plus PO 1 tab BID [facility] Administration Sodium Chloride 10 ml 12/10/18 11:25 Saline Flush FLUSH ASDIRECTED PRN Keep Vein Open Zolpidem Tartrate 10 mg 12/10/18 11:58 Ambien PO BEDTIME PRN Insomnia - Re-Assessments/Exams Free Text/Narrative Re-Assessment/Exam: 12/10/18 11:04 Labs all stable. Xray reveals no acute fracture. Discussed with patient and . does not feel she can adequately care for patient at home with his current weakness. Reports he has progressively gotten more weak the past few days. Was discharged home from [place] 12/05/2018 and feels he has declined since. Has been receiving home health. Will admit patient to acute. Patient and agreeable with plan. Departure - Departure Time of Disposition: 11:02 Disposition: Admitted As Inpatient 67 Condition: Fair Clinical Impression: Weakness generalized, Multiple sclerosis, Adult failure to thrive, Diabetic ulcer of both feet, Status post lumbar laminectomy Type 2 diabetes mellitus Qualifiers: Diabetes mellitus oysterman insulin use: without fci use Diabetes mellitus complication status: with skin complications Diabetes mellitus complication detail: with foot ulcer Qualified Code(s): E11.621 - Type 2 diabetes mellitus with foot ulcer - Discharge Information *PRESCRIPTION DRUG MONITORING PROGRAM REVIEWED*: Not Applicable *COPY OF PRESCRIPTION DRUG MONITORING REPORT IN PATIENT CURTIS: Not Applicable - Problem List & Annotations (1) Weakness generalized SNOMED Code(s): 23953589 Code(s): R53.1 - WEAKNESS Status: Acute Current Visit: Yes (2) Adult failure to thrive SNOMED Code(s): 568095784 Code(s): R62.7 - ADULT FAILURE TO THRIVE Status: Acute Current Visit: Yes (3) Diabetic ulcer of both feet SNOMED Code(s): 754708576 Code(s): E11.621 - TYPE 2 DIABETES MELLITUS WITH FOOT ULCER; L97.519 - NON- PRS CHRONIC ULCER OTH PRT RIGHT FOOT W UNSP SEVERITY; L97.529 - NON-PRESSURE CHRONIC ULCER OTH PRT LEFT FOOT W UNSP SEVERITY Status: Acute Current Visit : Yes (4) Multiple sclerosis SNOMED Code(s): 65289059 Code(s): G35 - MULTIPLE SCLEROSIS Status: Acute Current Visit: Yes (5) Status post lumbar laminectomy SNOMED Code(s): 91191733169621674, 176273648, 76343519595198881 Code(s): Z98.890 - OTHER SPECIFIED POSTPROCEDURAL STATES Status: Acute Current Visit: Yes (6) Type 2 diabetes mellitus SNOMED Code(s): 29865382 Code(s): E11.9 - TYPE 2 DIABETES MELLITUS WITHOUT COMPLICATIONS Status: Chronic Current Visit: Yes Qualifiers: Diabetes mellitus fci insulin use: without oysterman use Diabetes mellitus complication status: with skin complications Diabetes mellitus complication detail: with foot ulcer Qualified Code(s): E11.621 - Type 2 diabetes mellitus with foot ulcer; L97.509 - Non-pressure chronic ulcer of other part of unspecified foot with unspecified severity (7) Decubitus ulcer, buttock SNOMED Code(s): 210721874 Code(s): L89.309 - PRESSURE ULCER OF UNSPECIFIED BUTTOCK, UNSPECIFIED STAGE Status: Acute Current Visit: Yes - Problem List Review Problem List Initiated/Reviewed/Updated: Yes - My Orders Last 24 Hours: My Active Orders 12/10/18 09:57 Lumbar Spine 2 or 3V [CR] Stat 12/10/18 11:06 Resuscitation Status Routine 12/10/18 11:25 Oxygen Therapy [RC] .PRN Pulse Oximetry [RC] .PRN Vital Signs [RC] 0000,0400,0800,1200,1600,2000 PT Evaluation and Treatment [CONS] Routine Sodium Chloride 0.9% [Saline Flush] 10 ml FLUSH ASDIRECTED PRN Saline Lock Insert [OM.PC] Routine 12/10/18 11:30 Enoxaparin [Lovenox] 40 mg SUBCUT Q24H 12/10/18 Lunch Consistent Carbohydrate Diet [DIET] - Assessment/Plan Admission H&P: Please use this note as an admission H&P Last 24 Hours: My Active Orders 12/10/18 09:57 Lumbar Spine 2 or 3V [CR] Stat 12/10/18 11:06 Resuscitation Status Routine 12/10/18 11:25 Oxygen Therapy [RC] .PRN Pulse Oximetry [RC] .PRN Vital Signs [RC] 0000,0400,0800,1200,1600,2000 PT Evaluation and Treatment [CONS] Routine Sodium Chloride 0.9% [Saline Flush] 10 ml FLUSH ASDIRECTED PRN Saline Lock Insert [OM.PC] Routine 12/10/18 11:30 Enoxaparin [Lovenox] 40 mg SUBCUT Q24H 12/10/18 Lunch Consistent Carbohydrate Diet [DIET] Plan: Admit to acute Referral to PT for strengthening and wound cares Patient is vulnerable adult and cannot adequately be cared for in his home at present by his given his current weakness and recent surgery. Consult to case management for patient safety assessment
[2018-12-10 10:23] LABS: CHLORIDE,CL 102 mEq/L (98-106); SODIUM,NA 139 mEq/L (136-145)
[2018-12-10] MEDS ORDERED: Sodium Chloride 0.9% 10 ML Syringe FLUSH PRN (11:25)
[2018-12-10] MEDS ORDERED: Diazepam 5 MG Tab PO PRN (11:58)
[2018-12-10] MEDS: Insulin Lispro 100 Units/ML 3 ML Vial SUBCUT SCH ×3 (12:18→21:36)
[2018-12-10] MEDS: Enoxaparin 40 MG/0.4 ML Syringe SUBCUT SCH (12:36)
[2018-12-10] MEDS ORDERED: Magnesium Hydroxide 400 MG/5 ML Susp 30 ML Cup PO PRN (18:34)
[2018-12-10] MEDS: Baclofen 10 MG Tab PO SCH (20:13)
[2018-12-10] MEDS: DALFAMPRIDINE 10 MG PO SCH (20:14)
[2018-12-10] MEDS: Acetaminophen/oxyCODONE 325-5 MG Tab PO PRN (20:16)
[2018-12-10] MEDS: Non-Formulary Medication 1 Each (Sitagliptin Phos/Metformin Hcl [Janumet Xr 50-1,000 Mg Ta PO SCH (21:28)
[2018-12-10] MEDS: NORTRIPTYLINE HCL 25 MG PO SCH (21:28)
[2018-12-11] MEDS: Aspirin 325 MG Tab PO SCH (07:57)
[2018-12-11] MEDS: Losartan 100 MG Tab PO SCH (07:58)
[2018-12-11] MEDS: Baclofen 10 MG Tab PO SCH ×2 (07:58→20:41)
[2018-12-11] MEDS: Polyethylene Glycol 3350 Powder 17 GM Packet PO SCH (07:58)
[2018-12-11] MEDS: Acetaminophen/oxyCODONE 325-5 MG Tab PO PRN (07:59)
[2018-12-11] MEDS ORDERED: SOLIFENACIN 10 MG PO SCH (08:00)
[2018-12-11] MEDS ORDERED: Non-Formulary Medication 1 Each (Metoprolol Tartrate 100 MG) PO SCH (08:00)
[2018-12-11] MEDS ORDERED: MODAFINIL 200 MG PO SCH (08:00)
[2018-12-11] MEDS ORDERED: Non-Formulary Medication 1 Each (Mirtazapine [Mirtazapine] 30 MG) PO SCH (08:00)
[2018-12-11] MEDS: DALFAMPRIDINE 10 MG PO SCH ×2 (08:07→20:43)
[2018-12-11] MEDS: Insulin Lispro 100 Units/ML 3 ML Vial SUBCUT SCH ×4 (08:07→21:28)
[2018-12-11] MEDS: buPROPion 150 MG Tab.ER PO SCH (08:10)
[2018-12-11] MEDS: Metoprolol Tartrate 50 MG Tab PO SCH (08:30)
[2018-12-11] MEDS: Non-Formulary Medication 1 Each (Sitagliptin Phos/Metformin Hcl [Janumet Xr 50-1,000 Mg Ta PO SCH ×3 (09:05→20:47)
--- NOTE | 2018-12-11 09:21 | PCM.PN ---
- General Info Date of Service: 12/11/18 Admission Dx/Problem (Free Text): Failure to thrive Weakness DM Type 2 S/P lumbar fusion H/O MS Functional Status: Reports: Tolerating Diet. Denies: Pain Controlled, Ambulating - Review of Systems General: Reports: Weakness, Fatigue, Malaise HEENT: Reports: No Symptoms Pulmonary: Denies: Shortness of Breath, Cough Cardiovascular: Reports: Edema. Denies: Chest Pain, Lightheadedness Gastrointestinal: Denies: Abdominal Pain, Nausea, Vomiting Genitourinary: Reports: Frequency Musculoskeletal: Reports: Back Pain, Leg Pain Skin: Reports: Other (incision) Neurological: Reports: Pre-Existing Deficit, Difficulty Walking, Weakness - Patient Data Vitals - Most Recent: Last Vital Signs Temp 97.2 F 12/11/18 00:00 Pulse 86 12/11/18 00:00 Resp 18 12/11/18 00:00 BP 147/78 H 12/11/18 07:58 Pulse Ox 98 12/11/18 00:00 Weight - Most Recent: 221 lb 6.4 oz Lab Results Last 24 Hours: Laboratory Results - last 24 hr 12/10/18 12/10/18 12/10/18 Range/Units 10:05 10:05 10:24 WBC 9.5 (5.0-10.0) 10^3/uL RBC 4.54 (4.50-6.00) 10^6/uL Hgb 14.0 (14.0-18.0) g/dL Hct 42.0 (40.0-54.0) % MCV 92.5 (82.0-94.0) fL MCH 30.8 (27.0-32.0) pg MCHC 33.3 (33.0-38.0) g/dL RDW Coeff of Deng 13.3 (11.0-15.0) % Plt Count 260 (150-400) 10^3/uL Neut % (Auto) 68.7 (35-85) % Lymph % (Auto) 17.0 (10-55) % Sharp % (Auto) 10.7 (0-16) % Eos % (Auto) 3.4 (0-5) % Baso % (Auto) 0.2 (0-3) % Neut # (Auto) 6.50 (1.80-7.00) 10^3/uL Lymph # (Auto) 1.61 (1.00-4.80) 10^3/uL Sharp # (Auto) 1.01 H (0.00-0.80) 10^3/uL Eos # (Auto) 0.32 (0.00-0.45) 10^3/uL Baso # (Auto) 0.02 10^3/uL Sodium 139 (136-145) mEq/L Potassium 4.3 (3.5-5.0) mEq/L Chloride 102 (98-106) mEq/L Carbon Dioxide 30 (21-32) mmol/L BUN 14 (7-18) mg/dL Creatinine 1.0 (0.7-1.3) mg/dL Est Cr Clr Drug Dosing 67.90 mL/min Estimated GFR (MDRD) > 60 (>=60) mL/min Glucose 123 H (75-99) mg/dL POC Glucose (75-105) mg/dl Calcium 8.8 (8.4-10.1) mg/dL C-Reactive Protein 5.7 H (0.2-0.8) mg/dL Urine Color Yellow (YELLOW) Urine Appearance Clear (CLEAR) Urine pH 7.0 (4.5-8.0) Ur Specific [place] 1.020 (1.003-1.020) Urine Protein 30 H (NEGATIVE) mg/dL Urine Glucose (UA) >=1000 H (NEGATIVE) mg/dL Urine Ketones 15 H (NEGATIVE) mg/dL Urine Occult Blood Trace-lysed H (NEGATIVE) Urine Nitrite Negative (NEGATIVE) Urine Bilirubin Negative (NEGATIVE) Urine Urobilinogen 1.0 (0.2-1.0) EU/dL Ur Leukocyte Esterase Negative (NEGATIVE) Urine RBC 0-5 (0-5) /HPF Urine WBC 5-10 H (0-5) /HPF Ur Squamous Epith Cells Few H (NOT SEEN) /HPF 12/10/18 12/10/18 12/11/18 Range/Units 17:24 21:35 07:54 WBC (5.0-10.0) 10^3/uL RBC (4.50-6.00) 10^6/uL Hgb (14.0-18.0) g/dL Hct (40.0-54.0) % MCV (82.0-94.0) fL MCH (27.0-32.0) pg MCHC (33.0-38.0) g/dL RDW Coeff of Deng (11.0-15.0) % Plt Count (150-400) 10^3/uL Neut % (Auto) (35-85) % Lymph % (Auto) (10-55) % Sharp % (Auto) (0-16) % Eos % (Auto) (0-5) % Baso % (Auto) (0-3) % Neut # (Auto) (1.80-7.00) 10^3/uL Lymph # (Auto) (1.00-4.80) 10^3/uL Sharp # (Auto) (0.00-0.80) 10^3/uL Eos # (Auto) (0.00-0.45) 10^3/uL Baso # (Auto) 10^3/uL Sodium (136-145) mEq/L Potassium (3.5-5.0) mEq/L Chloride (98-106) mEq/L Carbon Dioxide (21-32) mmol/L BUN (7-18) mg/dL Creatinine (0.7-1.3) mg/dL Est Cr Clr Drug Dosing mL/min Estimated GFR (MDRD) (>=60) mL/min Glucose (75-99) mg/dL POC Glucose 359 H 292 H 273 H (75-105) mg/dl Calcium (8.4-10.1) mg/dL C-Reactive Protein (0.2-0.8) mg/dL Urine Color (YELLOW) Urine Appearance (CLEAR) Urine pH (4.5-8.0) Ur Specific [place] (1.003-1.020) Urine Protein (NEGATIVE) mg/dL Urine Glucose (UA) (NEGATIVE) mg/dL Urine Ketones (NEGATIVE) mg/dL Urine Occult Blood (NEGATIVE) Urine Nitrite (NEGATIVE) Urine Bilirubin (NEGATIVE) Urine Urobilinogen (0.2-1.0) EU/dL Ur Leukocyte Esterase (NEGATIVE) Urine RBC (0-5) /HPF Urine WBC (0-5) /HPF Ur Squamous Epith Cells (NOT SEEN) /HPF Med Orders - Current: Current Medications Aspirin (Aspirin) 325 mg PO DAILY [facility] Last Admin: 12/11/18 07:57 Dose: 325 mg Baclofen (Lioresal) 10 mg PO BID [facility] Last Admin: 12/11/18 07:58 Dose: 10 mg Bupropion HCl (Wellbutrin Xl) 150 mg PO DAILY [facility] Last Admin: 12/11/18 08:10 Dose: 150 mg Diazepam (Valium.) 5 mg PO Q6H PRN PRN Reason: Muscle Spasm Enoxaparin Sodium (Lovenox) 40 mg SUBCUT Q24H [facility] Last Admin: 12/10/18 12:36 Dose: 40 mg Insulin Human Lispro (Humalog) 0 unit SUBCUT 0800,1200,1730,2100 [facility]; Protocol Last Admin: 12/11/18 08:07 Dose: 6 unit Losartan Potassium (Cozaar) 100 mg PO DAILY [facility] Last Admin: 12/11/18 07:58 Dose: 100 mg Magnesium Hydroxide (Milk Of Magnesia) 30 ml PO BID PRN PRN Reason: Constipation Last Admin: 12/10/18 20:15 Dose: 30 ml Metoprolol Tartrate (Lopressor) 100 mg PO DAILY [facility] Mirtazapine (Remeron) 30 mg PO DAILY [facility] Non-Formulary Medication (Canagliflozin [Invokana]) 300 mg PO DAILY [facility] Dalfampridine [ Ampyra] 10 MgOwn Med 10 mg PO BID [facility] Last Admin: 12/11/18 08:07 Dose: 10 mg Non-Formulary Medication (Modafinil [Provigil]) 200 mg PO DAILY [facility] Non-Formulary Medication (Nortriptyline Hcl [Pamelor]) 25 mg PO BEDTIME [facility] Last Admin: 12/10/18 21:28 Dose: Not Given Non-Formulary Medication (Sitagliptin Phos/Metformin Hcl [Janumet Xr 50-1,000 Mg Tablet]) 1 tab PO BID [facility] Last Admin: 12/11/18 09:05 Dose: 1 tab Oxycodone/Acetaminophen (Percocet 325-5 Mg) 1 - 2 tab PO Q4H PRN PRN Reason: Pain Last Admin: 12/11/18 07:59 Dose: 2 tab Polyethylene Glycol (Miralax) 17 gm PO DAILY [facility] Last Admin: 12/11/18 07:58 Dose: 17 gm Senna/Docusate Sodium (Senna Plus) 1 tab PO BID [facility] Last Admin: 12/11/18 07:58 Dose: 1 tab Sodium Chloride (Saline Flush) 10 ml FLUSH ASDIRECTED PRN PRN Reason: Keep Vein Open Zolpidem Tartrate (Ambien) 10 mg PO BEDTIME PRN PRN Reason: Insomnia Discontinued Medications Non-Formulary Medication (Metoprolol Tartrate) 100 mg PO DAILY [facility] Non-Formulary Medication (Mirtazapine [Mirtazapine]) 30 mg PO DAILY [facility] Non-Formulary Medication (Solifenacin [Vesicare]) 10 mg PO DAILY [facility] Last Admin: 12/11/18 08:44 Dose: Not Given - Exam General: Alert, Oriented HEENT: Mucous Membr. Moist/[place] Neck: Supple Lungs: Clear to Auscultation, Normal Respiratory Effort Cardiovascular: Regular Rate, Regular Rhythm GI/Abdominal Exam: Normal Bowel Sounds, Soft, Non-Tender Extremities: Normal Inspection, Pedal Edema (1-2+) Skin: Warm, Dry Wound/Incisions: Other (Incision is clean and dry, no redness. [place] intact) Neurological: No New Focal Deficit - Problem List & Annotations (1) Adult failure to thrive SNOMED Code(s): 555648317 Code(s): R62.7 - ADULT FAILURE TO THRIVE Status: Acute Priority: High Current Visit: Yes (2) Decubitus ulcer, buttock SNOMED Code(s): 932914963 Code(s): L89.309 - PRESSURE ULCER OF UNSPECIFIED BUTTOCK, UNSPECIFIED STAGE Status: Acute Priority: High Current Visit: Yes (3) Diabetic ulcer of both feet SNOMED Code(s): 567498768 Code(s): E11.621 - TYPE 2 DIABETES MELLITUS WITH FOOT ULCER; L97.519 - NON- PRS CHRONIC ULCER OTH PRT RIGHT FOOT W UNSP SEVERITY; L97.529 - NON-PRESSURE CHRONIC ULCER OTH PRT LEFT FOOT W UNSP SEVERITY Status: Acute Priority: High Current Visit: Yes (4) Multiple sclerosis SNOMED Code(s): 97078916 Code(s): G35 - MULTIPLE SCLEROSIS Status: Chronic Priority: High Current Visit: Yes (5) Status post lumbar laminectomy SNOMED Code(s): 03194366850948547, 041283980, [id number] Code(s): Z98.890 - OTHER SPECIFIED POSTPROCEDURAL STATES Status: Acute Priority: High Current Visit: Yes (6) Weakness generalized SNOMED Code(s): 60463196 Code(s): R53.1 - WEAKNESS Status: Acute Priority: High Current Visit: Yes (7) Type 2 diabetes mellitus SNOMED Code(s): 53253013 Code(s): E11.9 - TYPE 2 DIABETES MELLITUS WITHOUT COMPLICATIONS Status: Chronic Priority: High Current Visit: Yes Qualifiers: Diabetes mellitus fpc insulin use: without remote computer terminal operator use Diabetes mellitus complication status: with skin complications Diabetes mellitus complication detail: with foot ulcer Qualified Code(s): E11.621 - Type 2 diabetes mellitus with foot ulcer; L97.509 - Non-pressure chronic ulcer of other part of unspecified foot with unspecified severity - Problem List Review Problem List Initiated/Reviewed/Updated: Yes - Assessment Assessment:: Failure to Thrive Weakness S/P Lumbar Fusion H/O MS DM Type 2 Pressure ulcers to feet, sacrum - Plan Plan:: Patient continues to have increased pain at times, improves with pain meds. Weak. Takes 2 to transfer patient. Incision is clean, dry. [place] well approximated. No redness. Will continue to assist as needed. Physical therapy. Did discuss the need to be able to assist in his cares, ambulate with standby assist in order to return home versus strengthening at the [facility]. Will monitor.
[2018-12-11] MEDS: Non-Formulary Medication 1 Each (Canagliflozin [Invokana] 300 MG) PO SCH (12:19)
[2018-12-11] MEDS: Enoxaparin 40 MG/0.4 ML Syringe SUBCUT SCH (13:15)
[2018-12-11] MEDS: NORTRIPTYLINE HCL 25 MG PO SCH (20:44)
[2018-12-11] MEDS: Zolpidem 5 MG Tab PO PRN (22:46)
[2018-12-12] MEDS: Polyethylene Glycol 3350 Powder 17 GM Packet PO SCH (08:09)
[2018-12-12] MEDS: Aspirin 325 MG Tab PO SCH (08:10)
[2018-12-12] MEDS: Mirtazapine 15 MG Tab PO SCH (08:10)
[2018-12-12] MEDS: Baclofen 10 MG Tab PO SCH ×2 (08:10→19:41)
[2018-12-12] MEDS: Losartan 100 MG Tab PO SCH (08:39)
[2018-12-12] MEDS: Metoprolol Tartrate 50 MG Tab PO SCH (08:39)
[2018-12-12] MEDS: Non-Formulary Medication 1 Each (Canagliflozin [Invokana] 300 MG) PO SCH (08:39)
[2018-12-12] MEDS: buPROPion 150 MG Tab.ER PO SCH (08:40)
[2018-12-12] MEDS: DALFAMPRIDINE 10 MG PO SCH ×2 (08:41→19:41)
[2018-12-12] MEDS: Non-Formulary Medication 1 Each (Sitagliptin Phos/Metformin Hcl [Janumet Xr 50-1,000 Mg Ta PO SCH (08:41)
[2018-12-12] MEDS: Insulin Lispro 100 Units/ML 3 ML Vial SUBCUT SCH ×4 (08:42→21:11)
--- NOTE | 2018-12-12 09:25 | PCM.PN ---
- General Info Date of Service: 12/12/18 Admission Dx/Problem (Free Text): Failure to thrive Weakness DM Type 2 S/P lumbar fusion H/O MS Functional Status: Reports: Pain Controlled, Tolerating Diet, Ambulating - Review of Systems General: Reports: Weakness, Fatigue, Malaise HEENT: Reports: No Symptoms Pulmonary: Denies: Shortness of Breath, Cough Cardiovascular: Denies: Chest Pain, Edema, Lightheadedness Gastrointestinal: Denies: Abdominal Pain, Nausea, Vomiting Genitourinary: Reports: No Symptoms Musculoskeletal: Reports: Back Pain Skin: Reports: Other (incision to back) Neurological: Reports: Pre-Existing Deficit, Weakness Psychiatric: Reports: No Symptoms - Patient Data Vitals - Most Recent: Last Vital Signs Temp 96.8 F 12/12/18 04:00 Pulse 85 12/12/18 08:39 Resp 18 12/12/18 04:00 BP 149/68 H 12/12/18 08:39 Pulse Ox 99 12/12/18 04:00 Weight - Most Recent: 221 lb 6.4 oz Lab Results Last 24 Hours: Laboratory Results - last 24 hr 12/11/18 12/11/18 12/11/18 Range/Units 11:38 17:05 21:27 POC Glucose 109 H 140 H 188 H (75-105) mg/dl 12/12/18 Range/Units 08:28 POC Glucose 153 H (75-105) mg/dl Med Orders - Current: Current Medications Aspirin (Aspirin) 325 mg PO DAILY [facility] Last Admin: 12/12/18 08:10 Dose: 325 mg Baclofen (Lioresal) 10 mg PO BID [facility] Last Admin: 12/12/18 08:10 Dose: 10 mg Bupropion HCl (Wellbutrin Xl) 150 mg PO DAILY [facility] Last Admin: 12/12/18 08:40 Dose: 150 mg Diazepam (Valium.) 5 mg PO Q6H PRN PRN Reason: Muscle Spasm Enoxaparin Sodium (Lovenox) 40 mg SUBCUT Q24H [facility] Last Admin: 12/11/18 13:15 Dose: 40 mg Insulin Human Lispro (Humalog) 0 unit SUBCUT 0800,1200,1730,2100 [facility]; Protocol Last Admin: 12/12/18 08:42 Dose: 2 unit Losartan Potassium (Cozaar) 100 mg PO DAILY [facility] Last Admin: 12/12/18 08:39 Dose: 100 mg Magnesium Hydroxide (Milk Of Magnesia) 30 ml PO BID PRN PRN Reason: Constipation Last Admin: 12/10/18 20:15 Dose: 30 ml Metoprolol Tartrate (Lopressor) 100 mg PO DAILY [facility] Last Admin: 12/12/18 08:39 Dose: 100 mg Mirtazapine (Remeron) 30 mg PO DAILY [facility] Last Admin: 12/12/18 08:10 Dose: 30 mg Non-Formulary Medication (Canagliflozin [Invokana]) 300 mg PO DAILY [facility] Last Admin: 12/12/18 08:39 Dose: Not Given Dalfampridine [ Ampyra] 10 MgOwn Med 10 mg PO BID [facility] Last Admin: 12/12/18 08:41 Dose: 10 mg Non-Formulary Medication (Nortriptyline Hcl [Pamelor]) 25 mg PO BEDTIME [facility] Last Admin: 12/11/18 20:44 Dose: Not Given Non-Formulary Medication (Sitagliptin Phos/Metformin Hcl [Janumet Xr 50-1,000 Mg Tablet]) 1 tab PO BID [facility] Last Admin: 12/12/18 08:41 Dose: 1 tab Oxycodone/Acetaminophen (Percocet 325-5 Mg) 1 - 2 tab PO Q4H PRN PRN Reason: Pain Last Admin: 12/11/18 07:59 Dose: 2 tab Polyethylene Glycol (Miralax) 17 gm PO DAILY [facility] Last Admin: 12/12/18 08:09 Dose: 17 gm Senna/Docusate Sodium (Senna Plus) 1 tab PO BID [facility] Last Admin: 12/12/18 08:09 Dose: 1 tab Sodium Chloride (Saline Flush) 10 ml FLUSH ASDIRECTED PRN PRN Reason: Keep Vein Open Zolpidem Tartrate (Ambien) 10 mg PO BEDTIME PRN PRN Reason: Insomnia Last Admin: 12/11/18 22:46 Dose: 10 mg Discontinued Medications Non-Formulary Medication (Metoprolol Tartrate) 100 mg PO DAILY [facility] Last Admin: 12/11/18 12:38 Dose: Not Given Non-Formulary Medication (Mirtazapine [Mirtazapine]) 30 mg PO DAILY [facility] Last Admin: 12/11/18 12:38 Dose: Not Given Non-Formulary Medication (Modafinil [Provigil]) 200 mg PO DAILY [facility] Last Admin: 12/11/18 09:32 Dose: Not Given Non-Formulary Medication (Solifenacin [Vesicare]) 10 mg PO DAILY [facility] Last Admin: 12/11/18 08:44 Dose: Not Given - Exam General: Alert, Oriented HEENT: Mucous Membr. Moist/[place] Neck: Supple Lungs: Clear to Auscultation, Normal Respiratory Effort Cardiovascular: Regular Rate, Regular Rhythm GI/Abdominal Exam: Normal Bowel Sounds, Soft, Non-Tender Back Exam: Vertebral Tenderness, Other (incision intact to lumbar spine) Extremities: Normal Inspection, No Pedal Edema Skin: Warm, Dry Wound/Incisions: Healing Well, No Drainage Neurological: No New Focal Deficit - Problem List & Annotations (1) Adult failure to thrive SNOMED Code(s): 652588527 Code(s): R62.7 - ADULT FAILURE TO THRIVE Status: Acute Priority: High Current Visit: Yes (2) Decubitus ulcer, buttock SNOMED Code(s): 872296131 Code(s): L89.309 - PRESSURE ULCER OF UNSPECIFIED BUTTOCK, UNSPECIFIED STAGE Status: Acute Priority: High Current Visit: Yes (3) Diabetic ulcer of both feet SNOMED Code(s): 042027198 Code(s): E11.621 - TYPE 2 DIABETES MELLITUS WITH FOOT ULCER; L97.519 - NON- PRS CHRONIC ULCER OTH PRT RIGHT FOOT W UNSP SEVERITY; L97.529 - NON-PRESSURE CHRONIC ULCER OTH PRT LEFT FOOT W UNSP SEVERITY Status: Acute Priority: High Current Visit: Yes (4) Multiple sclerosis SNOMED Code(s): 12851164 Code(s): G35 - MULTIPLE SCLEROSIS Status: Chronic Priority: High Current Visit: Yes (5) Status post lumbar laminectomy SNOMED Code(s): 93077209046475374, 878809965, [id number] Code(s): Z98.890 - OTHER SPECIFIED POSTPROCEDURAL STATES Status: Acute Priority: High Current Visit: Yes (6) Weakness generalized SNOMED Code(s): 98273357 Code(s): R53.1 - WEAKNESS Status: Acute Priority: High Current Visit: Yes (7) Type 2 diabetes mellitus SNOMED Code(s): 97334480 Code(s): E11.9 - TYPE 2 DIABETES MELLITUS WITHOUT COMPLICATIONS Status: Chronic Priority: High Current Visit: Yes Qualifiers: Diabetes mellitus member services representative insulin use: without member services representative use Diabetes mellitus complication status: with skin complications Diabetes mellitus complication detail: with foot ulcer Qualified Code(s): E11.621 - Type 2 diabetes mellitus with foot ulcer; L97.509 - Non-pressure chronic ulcer of other part of unspecified foot with unspecified severity - Problem List Review Problem List Initiated/Reviewed/Updated: Yes - Assessment Assessment:: Failure to Thrive Weakness S/P Lumbar Fusion H/O MS DM Type 2 Pressure ulcers to feet, sacrum - Plan Plan:: Patient continues to have increased pain at times, improves with pain meds. Weak. Takes 2 to transfer patient. Incision is clean, dry. [place] well approximated. No redness. Will continue to assist as needed. Physical therapy. Did discuss the need to be able to assist in his cares, ambulate with standby assist in order to return home versus strengthening at the skilled nursing. Will monitor. 12-12-2018 Patient admits to mild pain in back. Did have episode last evening where legs buckled last evening but has been ambulating more with 1 assist and walker. He feels he gets stiff and more sore if not active enough. Incision is clean and dry, [place] well approximated. Will continue with PT. Is scheduled for follow up with surgeon on Sunday, [place] to be removed at that time. Will continue to monitor.
[2018-12-12] MEDS: JANUMET PO SCH ×2 (10:25→19:42)
[2018-12-12] MEDS: Enoxaparin 40 MG/0.4 ML Syringe SUBCUT SCH (11:46)
[2018-12-12] MEDS: NORTRIPTYLINE HCL 25 MG PO SCH (19:45)
[2018-12-12] MEDS: Zolpidem 5 MG Tab PO PRN (22:25)
[2018-12-13] MEDS: Aspirin 325 MG Tab PO SCH (07:47)
[2018-12-13] MEDS: Metoprolol Tartrate 50 MG Tab PO SCH (07:49)
[2018-12-13] MEDS: Losartan 100 MG Tab PO SCH (07:49)
[2018-12-13] MEDS: buPROPion 150 MG Tab.ER PO SCH (07:49)
[2018-12-13] MEDS: Polyethylene Glycol 3350 Powder 17 GM Packet PO SCH (07:50)
[2018-12-13] MEDS: Mirtazapine 15 MG Tab PO SCH (07:50)
[2018-12-13] MEDS: Baclofen 10 MG Tab PO SCH ×2 (07:50→19:44)
[2018-12-13] MEDS: Non-Formulary Medication 1 Each (Canagliflozin [Invokana] 300 MG) PO SCH (07:51)
[2018-12-13] MEDS: JANUMET PO SCH ×2 (07:51→19:45)
[2018-12-13] MEDS: DALFAMPRIDINE 10 MG PO SCH ×2 (07:51→19:46)
[2018-12-13] MEDS: Insulin Lispro 100 Units/ML 3 ML Vial SUBCUT SCH ×4 (07:54→21:00)
[2018-12-13] MEDS: Enoxaparin 40 MG/0.4 ML Syringe SUBCUT SCH (12:10)
--- NOTE | 2018-12-13 14:43 | PN ---
DATE: 12/13/2018 S: Mr. Deshpande continues to show improvement in his low back pain. He is getting aggressive physical therapy. He has multiple pressure sores on his sacrum as well as bilateral feet. O: Today, NECK: He has flat neck veins. LUNGS: Clear. CARDIAC: Tones are regular. ABDOMEN: His abdomen appears nontender with good bowel sounds. EXTREMITIES: Lower extremities show pressure sores, one on the right is an over the base of the fifth metatarsal. Left side shows one along the heel and few smaller ones distally. There appears to be good blood flow. The feet are warm and pink with brisk capillary refill. No edema is noted. ASSESSMENT: 1. LOW BACK PAIN, STATUS POST LUMBAR SURGERY. 2. SACRAL PRESSURE SORES. 3. PRESSURE SORES OF BILATERAL FEET. P: We will continue with aggressive physical therapy for both his wounds along with his back rehab. Clinically, he looks like he is doing better. We will keep pressure off his lower extremities, and we will aggressively continue to monitor his sacral region. REY/BEA /[id number]
[2018-12-13] MEDS: Zolpidem 5 MG Tab PO PRN (21:57)
[2018-12-14] MEDS: Non-Formulary Medication 1 Each (Canagliflozin [Invokana] 300 MG) PO SCH (07:37)
[2018-12-14] MEDS: Aspirin 325 MG Tab PO SCH (07:37)
[2018-12-14] MEDS: Losartan 100 MG Tab PO SCH (07:37)
[2018-12-14] MEDS: DALFAMPRIDINE 10 MG PO SCH (07:38)
[2018-12-14] MEDS: Metoprolol Tartrate 50 MG Tab PO SCH (07:39)
[2018-12-14] MEDS: Baclofen 10 MG Tab PO SCH (07:39)
[2018-12-14] MEDS: JANUMET PO SCH (07:40)
[2018-12-14] MEDS: Mirtazapine 15 MG Tab PO SCH (07:40)
[2018-12-14] MEDS: buPROPion 150 MG Tab.ER PO SCH (07:41)
[2018-12-14] MEDS: Polyethylene Glycol 3350 Powder 17 GM Packet PO SCH (07:44)
[2018-12-14] MEDS: Insulin Lispro 100 Units/ML 3 ML Vial SUBCUT SCH (07:49)
--- NOTE | 2018-12-14 19:30 | PCM.DCSUM1 ---
Discharge Summary - Hospital Course Free Text/Narrative:: Patient presented to ER per EMS with complaints of weakness and back pain. He is status post L2-3, L4-5 laminectomy x1 week. He was up ambulating to the bathroom when he "got tangled up in his walker" and fell to the floor. Was unable to get up. Patient has history of MS, does use walker only for short distances, otherwise has been using the wheelchair. He was having significant back pain while on the backboard but improved when settled on to bed. Labs essentially negative. Xrays negative. Admitted due to vulnerable adult as patient at present unable to care for himself and unable to assist due to weakness. Diagnosis: Stroke: No Modified Duke Scale: No Symptoms at All Modified Duke Scale Score: 0 - Discharge Data Discharge Date: 12/14/18 Discharge Disposition: DC/Tfer W/I Hosp To Swing 61 Condition: Fair - Discharge Diagnosis/Problem(s) (1) Adult failure to thrive SNOMED Code(s): 071966244 ICD Code: R62.7 - ADULT FAILURE TO THRIVE Status: Acute Priority: High (2) Decubitus ulcer, buttock SNOMED Code(s): 262606887 ICD Code: L89.309 - PRESSURE ULCER OF UNSPECIFIED BUTTOCK, UNSPECIFIED STAGE Status: Acute Priority: High (3) Diabetic ulcer of both feet SNOMED Code(s): 148286924 ICD Code: E11.621 - TYPE 2 DIABETES MELLITUS WITH FOOT ULCER; L97.519 - NON- PRS CHRONIC ULCER OTH PRT RIGHT FOOT W UNSP SEVERITY; L97.529 - NON-PRESSURE CHRONIC ULCER OTH PRT LEFT FOOT W UNSP SEVERITY Status: Acute Priority: High (4) Multiple sclerosis SNOMED Code(s): 53687362 ICD Code: G35 - MULTIPLE SCLEROSIS Status: Chronic Priority: High (5) Status post lumbar laminectomy SNOMED Code(s): 49837769962916885, 117017959, 08808968994483260 ICD Code: Z98.890 - OTHER SPECIFIED POSTPROCEDURAL STATES Status: Acute Priority: High (6) Weakness generalized SNOMED Code(s): 95873452 ICD Code: R53.1 - WEAKNESS Status: Acute Priority: High (7) Type 2 diabetes mellitus SNOMED Code(s): 41149237 ICD Code: E11.9 - TYPE 2 DIABETES MELLITUS WITHOUT COMPLICATIONS Status: Chronic Priority: High Qualifiers: Diabetes mellitus [facility] insulin use: without keno terminal operator use Diabetes mellitus complication status: with skin complications Diabetes mellitus complication detail: with foot ulcer Qualified Code(s): E11.621 - Type 2 diabetes mellitus with foot ulcer; L97.509 - Non-pressure chronic ulcer of other part of unspecified foot with unspecified severity - Patient Summary/Data Complications: none Consults: Consultations 12/10/18 11:25 PT Evaluation and Treatment [CONS] Routine 12/10/18 18:26 Consult to Case Management/Life [employer] Sales [CONS] Routine Hospital Course: Patient had been up and ambulating to bathroom, short distances in [place], felt was getting stronger. However, has multiple pressure ulcers on feet that were present prior to admission and PT has felt should be no weight bearing on feet now due to this. Posterior left heel has significant ulcer with necrotic center , developed more recently after surgery per . Has been dealing with ulcers to his lateral feet for some time and have actually improved. Also has sacral ulcer with duoderm intact. Lumbar incision is clean, hpoenix intact. No redness noted. Will transfer to swing bed status due to inability to care for self, possible transfer to care home until ulcers to feet have healed and able to be ambulatory. - Patient Instructions Diet: Diabetic Diet Activity: Non Weight Bearing - Discharge Plan *PRESCRIPTION DRUG MONITORING PROGRAM REVIEWED*: Not Applicable *COPY OF PRESCRIPTION DRUG MONITORING REPORT IN PATIENT CURTIS: Not Applicable Home Medications: Home Meds Aspirin 325 mg PO DAILY 05/04/18 [History] Baclofen 10 mg PO BID 05/04/18 [History] Cholecalciferol (Vitamin D3) [Vitamin D3] 2,000 units PO DAILY 05/04/18 [History ] Dalfampridine [Ampyra] 10 mg PO BID 05/04/18 [History] Losartan [Cozaar] 100 mg PO DAILY 05/04/18 [History] Mirtazapine 30 mg PO DAILY 05/04/18 [History] Multivitamin with Minerals [Multiple Vitamin] 1 tab PO DAILY 05/04/18 [History] Nortriptyline HCl [Pamelor] 25 mg PO BEDTIME 05/04/18 [History] Zolpidem [Ambien] 10 mg PO BEDTIME PRN 05/04/18 [History] buPROPion [buPROPion XL] 150 mg PO DAILY 05/04/18 [History] sitaGLIPtin Phos/Metformin HCl [Janumet Xr 50-1,000 mg Tablet] 1 tab PO BID [History] Metoprolol Tartrate 100 mg PO DAILY 12/10/18 [History] Modafinil [Provigil] 200 mg PO DAILY 12/10/18 [History] [place]-3/DHA/Epa/Fish Oil [[place]-3 Fish Oil 1,000 MG Sfgl] 1,000 mg PO DAILY 02/21 [History] Polyethylene Glycol 3350 [MiraLAX] 17 gm PO DAILY 12/10/18 [History] Sennosides/Docusate Sodium [Senna-Docusate Sodium Tablet] 1 tab PO BID 12/10/18 [History] diazePAM [Valium] 5 mg PO Q6H PRN 12/10/18 [History] oxyCODONE HCl/Acetaminophen [Oxycodone-Acetaminophen 5-325] 1 - 2 tab PO Q4H PRN 12/10/18 [History] Carboxymethylcellulose Sodium [Refresh Tears] 15 ml EYEBOTH QID PRN 12/11/18 [ History] Mirabegron [Myrbetriq] 25 mg PO DAILY 12/11/18 [History] Empagliflozin [Jardiance] 25 mg PO DAILY 12/12/18 [History] Forms: ED Department Discharge Referrals: Alanna Londono PA [Primary Care Provider] - - Discharge Summary/Plan Comment DC Time >30 min.: No - General Info Date of Service: 12/14/18 Admission Dx/Problem (Free Text: Failure to thrive Weakness DM Type 2 S/P lumbar fusion H/O MS Functional Status: Reports: Pain Controlled, Tolerating Diet. Denies: Ambulating (no weight bearing now due to pressure ulcers) - Review of Systems General: Reports: Weakness, Fatigue. Denies: Fever, Malaise HEENT: Reports: No Symptoms Pulmonary: Denies: Shortness of Breath, Cough, Wheezing Cardiovascular: Denies: Chest Pain, Edema, Lightheadedness Gastrointestinal: Denies: Abdominal Pain, Nausea, Vomiting Genitourinary: Reports: No Symptoms Musculoskeletal: Reports: Back Pain Skin: Reports: Other (incision intact to back) Neurological: Reports: Weakness - Patient Data Vitals - Most Recent: Last Vital Signs Temp 96.0 F 12/14/18 07:53 Pulse 94 12/14/18 07:53 Resp 20 12/14/18 07:53 BP 104/47 L 12/14/18 07:53 Pulse Ox 96 12/14/18 07:53 Weight - Most Recent: 221 lb 6.4 oz Lab Results - Last 24 hrs: Laboratory Results - last 24 hr 12/13/18 12/14/18 Range/Units 20:58 07:48 POC Glucose 198 H 109 H (75-105) mg/dl Med Orders - Current: Current Medications Discontinued Medications Aspirin (Aspirin) 325 mg PO DAILY [facility] Last Admin: 12/14/18 07:37 Dose: 325 mg Baclofen (Lioresal) 10 mg PO BID [facility] [place] Last Admin: 12/14/18 07:39 Dose: 10 mg Bupropion HCl (Wellbutrin Xl) 150 mg PO DAILY [facility] [place] Last Admin: 12/14/18 07:41 Dose: 150 mg Diazepam (Valium.) 5 mg PO Q6H PRN PRN Reason: Muscle Spasm Enoxaparin Sodium (Lovenox) 40 mg SUBCUT Q24H [facility] [place] Last Admin: 12/13/18 12:10 Dose: 40 mg Insulin Human Lispro (Humalog) 0 unit SUBCUT 0800,1200,1730,2100 [facility] [place]; Protocol Last Admin: 12/14/18 07:49 Dose: Not Given Losartan Potassium (Cozaar) 100 mg PO DAILY [facility] [place] Last Admin: 12/14/18 07:37 Dose: 100 mg Magnesium Hydroxide (Milk Of Magnesia) 30 ml PO BID PRN PRN Reason: Constipation Last Admin: 12/10/18 20:15 Dose: 30 ml Metoprolol Tartrate (Lopressor) 100 mg PO DAILY [facility] [place] Last Admin: 12/14/18 07:39 Dose: 100 mg Mirtazapine (Remeron) 30 mg PO DAILY [facility] [place] Last Admin: 12/14/18 07:40 Dose: 30 mg Non-Formulary Medication (Canagliflozin [Invokana]) 300 mg PO DAILY [facility] [place] Last Admin: 12/14/18 07:37 Dose: Not Given Dalfampridine [ Ampyra] 10 MgOwn Med 10 mg PO BID [facility] [place] Last Admin: 12/14/18 07:38 Dose: 10 mg Non-Formulary Medication (Metoprolol Tartrate) 100 mg PO DAILY [facility] [place] Last Admin: 12/11/18 12:38 Dose: Not Given Non-Formulary Medication (Mirtazapine [Mirtazapine]) 30 mg PO DAILY [facility] [place] Last Admin: 12/11/18 12:38 Dose: Not Given Non-Formulary Medication (Modafinil [Provigil]) 200 mg PO DAILY [facility] [place] Last Admin: 12/11/18 09:32 Dose: Not Given Non-Formulary Medication (Nortriptyline Hcl [Pamelor]) 25 mg PO BEDTIME [facility] [place] Last Admin: 12/12/18 19:45 Dose: Not Given Non-Formulary Medication (Sitagliptin Phos/Metformin Hcl [Janumet Xr 50-1,000 Mg Tablet]) 1 tab PO BID [facility] [place] Last Admin: 12/12/18 08:41 Dose: 1 tab Non-Formulary Medication (Solifenacin [Vesicare]) 10 mg PO DAILY [facility] [place] Last Admin: 12/11/18 08:44 Dose: Not Given Janumet 50-1000 (Own Med) 0 tab PO BID [facility] [place] Last Admin: 12/14/18 07:40 Dose: 1 tab Oxycodone/Acetaminophen (Percocet 325-5 Mg) 1 - 2 tab PO Q4H PRN PRN Reason: Pain Last Admin: 12/11/18 07:59 Dose: 2 tab (Nortriptyline Hcl [ Pamelor] 25 Mg)*Pt Own Med* 0 each PO BEDTIME [facility] [place] Last Admin: 12/13/18 19:45 Dose: 1 each Polyethylene Glycol (Miralax) 17 gm PO DAILY [facility] [place] Last Admin: 12/14/18 07:44 Dose: Not Given Senna/Docusate Sodium (Senna Plus) 1 tab PO BID [facility] [place] Last Admin: 12/14/18 07:44 Dose: 1 tab Sodium Chloride (Saline Flush) 10 ml FLUSH ASDIRECTED PRN PRN Reason: Keep Vein Open Zolpidem Tartrate (Ambien) 10 mg PO BEDTIME PRN PRN Reason: Insomnia Last Admin: 12/13/18 21:57 Dose: 10 mg - Exam General: Reports: Alert, Oriented HEENT: Reports: Mucous Membr. Moist/[place] Neck: Reports: Supple Lungs: Reports: Clear to Auscultation, Normal Respiratory Effort Cardiovascular: Reports: Regular Rate, Regular Rhythm GI/Abdominal Exam: Normal Bowel Sounds, Soft, Non-Tender Extremities: Normal Inspection, No Pedal Edema Skin: Reports: Other (see pictures for all pressure ulcers on feet, sacrum) Wound/Incisions: Reports: No Drainage Neurological: Reports: No New Focal Deficit
== END 2018-12-14 08:36 | disposition swing bed (61) | DRG 948 ==
LOC: CC.ED 09:31 → UNDOADMIN 11:08 → CC.MS 11:08
PROVIDERS: ADMIT Nurse Practitioner Family; ATTEND Family Medicine
DX: R53.1 Weakness (principal); I10 Essential (primary) hypertension; F32.9 Major depressive disorder, single episode, unspecified; E11.621 Type 2 diabetes mellitus with foot ulcer; R62.7 Adult failure to thrive; L89.899 Pressure ulcer of other site, unspecified stage; L97.529 Non-pressure chronic ulcer of other part of left foot with unspecified severity; L97.519 Non-pressure chronic ulcer of other part of right foot with unspecified severity; G35 Multiple sclerosis; L89.309 Pressure ulcer of unspecified buttock, unspecified stage; L89.159 Pressure ulcer of sacral region, unspecified stage; Z88.5 Allergy status to narcotic agent; Z79.82 Long term (current) use of aspirin; Z79.899 Other long term (current) drug therapy; Z98.1 Arthrodesis status
CPT/HCPCS: 36415; 72100; 80048; 81001; 82962; 85025; 86140; 97110-GP; 97161-GP; 99285-25; A9270-GY; J1650; J1815

== ENCOUNTER 2018-12-14 08:34 | Inpatient (IN) | payer MEDICARE, BC, MEDICAID ==
[2018-12-14] MEDS ORDERED: Magnesium Hydroxide 400 MG/5 ML Susp 30 ML Cup PO PRN (09:17)
[2018-12-14] MEDS ORDERED: Acetaminophen/oxyCODONE 325-5 MG Tab PO PRN (09:17)
[2018-12-14] MEDS ORDERED: Sodium Chloride 0.9% 10 ML Syringe FLUSH PRN ×2 (09:17)
[2018-12-14] MEDS ORDERED: Diazepam 5 MG Tab PO PRN (09:17)
[2018-12-14] MEDS: EMPAGLIFLOZIN 25 MG PO SCH (10:30)
[2018-12-14] MEDS: Insulin Lispro 100 Units/ML 3 ML Vial SUBCUT SCH ×3 (11:52→21:35)
[2018-12-14] MEDS: Enoxaparin 40 MG/0.4 ML Syringe SUBCUT SCH (12:08)
[2018-12-14] MEDS: Baclofen 10 MG Tab PO SCH (19:17)
[2018-12-14] MEDS: DALFAMPRIDINE 10 MG PO SCH (19:18)
[2018-12-14] MEDS: NORTRIPTYLINE PO SCH (19:18)
[2018-12-14] MEDS: SITAGLIPTIN PHOS PO SCH (19:19)
[2018-12-14] MEDS: METFORMIN HCL PO SCH (19:19)
[2018-12-14] MEDS: Menthol/Zinc Oxide Ointment 113 GM Tube TOP PRN (19:19)
[2018-12-14] MEDS: Zolpidem 5 MG Tab PO PRN (22:59)
[2018-12-15] MEDS: Losartan 100 MG Tab PO SCH (07:56)
[2018-12-15] MEDS: DALFAMPRIDINE 10 MG PO SCH ×2 (07:58→19:25)
[2018-12-15] MEDS: Aspirin 325 MG Tab.EC PO SCH (07:58)
[2018-12-15] MEDS: EMPAGLIFLOZIN 25 MG PO SCH (07:58)
[2018-12-15] MEDS: Baclofen 10 MG Tab PO SCH ×2 (07:59→19:25)
[2018-12-15] MEDS: Insulin Lispro 100 Units/ML 3 ML Vial SUBCUT SCH ×4 (07:59→20:45)
[2018-12-15] MEDS: Metoprolol Tartrate 50 MG Tab PO SCH (08:00)
[2018-12-15] MEDS: Mirtazapine 15 MG Tab PO SCH (08:00)
[2018-12-15] MEDS: Polyethylene Glycol 3350 Powder 17 GM Packet PO SCH (08:00)
[2018-12-15] MEDS: METFORMIN HCL PO SCH ×2 (08:01→19:26)
[2018-12-15] MEDS: SITAGLIPTIN PHOS PO SCH ×2 (08:01→19:26)
[2018-12-15] MEDS: buPROPion 150 MG Tab.ER PO SCH (08:02)
[2018-12-15] MEDS: Menthol/Zinc Oxide Ointment 113 GM Tube TOP PRN ×2 (10:35→19:26)
[2018-12-15] MEDS: Enoxaparin 40 MG/0.4 ML Syringe SUBCUT SCH (10:51)
[2018-12-15] MEDS: NORTRIPTYLINE PO SCH (19:25)
[2018-12-16] MEDS: Aspirin 325 MG Tab.EC PO SCH (07:47)
[2018-12-16] MEDS: Baclofen 10 MG Tab PO SCH ×2 (07:47→19:35)
[2018-12-16] MEDS: Insulin Lispro 100 Units/ML 3 ML Vial SUBCUT SCH ×4 (07:47→20:45)
[2018-12-16] MEDS: Losartan 100 MG Tab PO SCH (07:48)
[2018-12-16] MEDS: buPROPion 150 MG Tab.ER PO SCH (07:48)
[2018-12-16] MEDS: Mirtazapine 15 MG Tab PO SCH (07:48)
[2018-12-16] MEDS: Metoprolol Tartrate 50 MG Tab PO SCH (07:48)
[2018-12-16] MEDS: EMPAGLIFLOZIN 25 MG PO SCH (07:50)
[2018-12-16] MEDS: DALFAMPRIDINE 10 MG PO SCH ×2 (07:50→19:36)
[2018-12-16] MEDS: SITAGLIPTIN PHOS PO SCH ×2 (07:51→19:36)
[2018-12-16] MEDS: METFORMIN HCL PO SCH ×2 (07:51→19:36)
[2018-12-16] MEDS: Polyethylene Glycol 3350 Powder 17 GM Packet PO SCH (07:51)
[2018-12-16] MEDS: Enoxaparin 40 MG/0.4 ML Syringe SUBCUT SCH (11:43)
[2018-12-16] MEDS: NORTRIPTYLINE PO SCH (19:36)
[2018-12-17] MEDS: Polyethylene Glycol 3350 Powder 17 GM Packet PO SCH (08:06)
[2018-12-17] MEDS: Baclofen 10 MG Tab PO SCH ×2 (08:08→19:35)
[2018-12-17] MEDS: Metoprolol Tartrate 50 MG Tab PO SCH (08:08)
[2018-12-17] MEDS: Aspirin 325 MG Tab.EC PO SCH (08:08)
[2018-12-17] MEDS: METFORMIN HCL PO SCH ×2 (08:09→19:35)
[2018-12-17] MEDS: buPROPion 150 MG Tab.ER PO SCH (08:09)
[2018-12-17] MEDS: Mirtazapine 15 MG Tab PO SCH (08:09)
[2018-12-17] MEDS: Losartan 100 MG Tab PO SCH (08:09)
[2018-12-17] MEDS: SITAGLIPTIN PHOS PO SCH ×2 (08:09→19:35)
[2018-12-17] MEDS: EMPAGLIFLOZIN 25 MG PO SCH (08:11)
[2018-12-17] MEDS: DALFAMPRIDINE 10 MG PO SCH ×2 (08:11→19:35)
[2018-12-17] MEDS: Insulin Lispro 100 Units/ML 3 ML Vial SUBCUT SCH ×4 (08:12→20:32)
[2018-12-17] MEDS: Enoxaparin 40 MG/0.4 ML Syringe SUBCUT SCH (11:56)
[2018-12-17] MEDS: NORTRIPTYLINE PO SCH (19:35)
[2018-12-17] MEDS: Zolpidem 5 MG Tab PO PRN (22:57)
[2018-12-18] MEDS: Aspirin 325 MG Tab.EC PO SCH (07:58)
[2018-12-18] MEDS: Losartan 100 MG Tab PO SCH (07:58)
[2018-12-18] MEDS: DALFAMPRIDINE 10 MG PO SCH ×2 (07:59→20:16)
[2018-12-18] MEDS: Baclofen 10 MG Tab PO SCH ×2 (07:59→20:16)
[2018-12-18] MEDS: buPROPion 150 MG Tab.ER PO SCH (07:59)
[2018-12-18] MEDS: Metoprolol Tartrate 50 MG Tab PO SCH (07:59)
[2018-12-18] MEDS: EMPAGLIFLOZIN 25 MG PO SCH (08:00)
[2018-12-18] MEDS: METFORMIN HCL PO SCH ×2 (08:00→20:17)
[2018-12-18] MEDS: SITAGLIPTIN PHOS PO SCH ×2 (08:00→20:17)
[2018-12-18] MEDS: Insulin Lispro 100 Units/ML 3 ML Vial SUBCUT SCH ×4 (08:01→20:22)
[2018-12-18] MEDS: Polyethylene Glycol 3350 Powder 17 GM Packet PO SCH (08:01)
[2018-12-18] MEDS: Mirtazapine 15 MG Tab PO SCH ×2 (09:26→20:17)
[2018-12-18] MEDS: Enoxaparin 40 MG/0.4 ML Syringe SUBCUT SCH (12:21)
[2018-12-18] MEDS: NORTRIPTYLINE PO SCH (20:16)
[2018-12-18] MEDS: Zolpidem 5 MG Tab PO PRN (22:18)
[2018-12-19] MEDS: Insulin Lispro 100 Units/ML 3 ML Vial SUBCUT SCH ×4 (07:53→21:00)
[2018-12-19] MEDS: Metoprolol Tartrate 50 MG Tab PO SCH (08:14)
[2018-12-19] MEDS: buPROPion 150 MG Tab.ER PO SCH (08:14)
[2018-12-19] MEDS: Losartan 100 MG Tab PO SCH (08:15)
[2018-12-19] MEDS: Polyethylene Glycol 3350 Powder 17 GM Packet PO SCH (08:15)
[2018-12-19] MEDS: Baclofen 10 MG Tab PO SCH ×2 (08:15→19:42)
[2018-12-19] MEDS: DALFAMPRIDINE 10 MG PO SCH ×2 (08:15→19:42)
[2018-12-19] MEDS: Aspirin 325 MG Tab.EC PO SCH (08:15)
[2018-12-19] MEDS: SITAGLIPTIN PHOS PO SCH ×2 (08:16→19:43)
[2018-12-19] MEDS: METFORMIN HCL PO SCH ×2 (08:16→19:43)
[2018-12-19] MEDS: EMPAGLIFLOZIN 25 MG PO SCH (08:17)
[2018-12-19] MEDS: Enoxaparin 40 MG/0.4 ML Syringe SUBCUT SCH (11:37)
[2018-12-19] MEDS: NORTRIPTYLINE PO SCH (19:42)
[2018-12-19] MEDS: Mirtazapine 15 MG Tab PO SCH (19:43)
[2018-12-19] MEDS: Menthol/Zinc Oxide Ointment 113 GM Tube TOP PRN (19:44)
[2018-12-19] MEDS: Zolpidem 5 MG Tab PO PRN (23:18)
[2018-12-20] MEDS: Polyethylene Glycol 3350 Powder 17 GM Packet PO SCH (08:05)
[2018-12-20] MEDS: Aspirin 325 MG Tab.EC PO SCH (08:05)
[2018-12-20] MEDS: Metoprolol Tartrate 50 MG Tab PO SCH (08:06)
[2018-12-20] MEDS: Losartan 100 MG Tab PO SCH (08:06)
[2018-12-20] MEDS: Baclofen 10 MG Tab PO SCH ×2 (08:06→19:34)
[2018-12-20] MEDS: buPROPion 150 MG Tab.ER PO SCH (08:06)
[2018-12-20] MEDS: METFORMIN HCL PO SCH ×2 (08:07→19:34)
[2018-12-20] MEDS: SITAGLIPTIN PHOS PO SCH ×2 (08:07→19:34)
[2018-12-20] MEDS: DALFAMPRIDINE 10 MG PO SCH ×2 (08:07→19:33)
[2018-12-20] MEDS: Insulin Lispro 100 Units/ML 3 ML Vial SUBCUT SCH ×4 (08:08→21:23)
[2018-12-20] MEDS: EMPAGLIFLOZIN 25 MG PO SCH (08:08)
[2018-12-20] MEDS: Enoxaparin 40 MG/0.4 ML Syringe SUBCUT SCH (11:47)
[2018-12-20] MEDS: NORTRIPTYLINE PO SCH (19:33)
[2018-12-20] MEDS: Mirtazapine 15 MG Tab PO SCH (19:34)
[2018-12-20] MEDS: Zolpidem 5 MG Tab PO PRN (22:07)
[2018-12-21] MEDS: Aspirin 325 MG Tab.EC PO SCH (08:01)
[2018-12-21] MEDS: Losartan 100 MG Tab PO SCH (08:01)
[2018-12-21] MEDS: buPROPion 150 MG Tab.ER PO SCH (08:01)
[2018-12-21] MEDS: Metoprolol Tartrate 50 MG Tab PO SCH (08:01)
[2018-12-21] MEDS: Baclofen 10 MG Tab PO SCH ×2 (08:01→20:00)
[2018-12-21] MEDS: EMPAGLIFLOZIN 25 MG PO SCH (08:02)
[2018-12-21] MEDS: DALFAMPRIDINE 10 MG PO SCH ×2 (08:03→20:01)
[2018-12-21] MEDS: Polyethylene Glycol 3350 Powder 17 GM Packet PO SCH (08:11)
[2018-12-21] MEDS: SITAGLIPTIN PHOS PO SCH ×2 (08:12→20:01)
[2018-12-21] MEDS: METFORMIN HCL PO SCH ×2 (08:12→20:01)
[2018-12-21] MEDS: Insulin Lispro 100 Units/ML 3 ML Vial SUBCUT SCH ×4 (08:14→21:18)
[2018-12-21] MEDS: Enoxaparin 40 MG/0.4 ML Syringe SUBCUT SCH (12:57)
[2018-12-21] MEDS: Mirtazapine 15 MG Tab PO SCH (20:00)
[2018-12-21] MEDS: NORTRIPTYLINE PO SCH (20:01)
[2018-12-21] MEDS: Zolpidem 5 MG Tab PO PRN (22:21)
[2018-12-22] MEDS: Polyethylene Glycol 3350 Powder 17 GM Packet PO SCH (08:02)
[2018-12-22] MEDS: Aspirin 325 MG Tab.EC PO SCH (08:04)
[2018-12-22] MEDS: buPROPion 150 MG Tab.ER PO SCH (08:04)
[2018-12-22] MEDS: Metoprolol Tartrate 50 MG Tab PO SCH (08:04)
[2018-12-22] MEDS: Baclofen 10 MG Tab PO SCH ×2 (08:04→19:42)
[2018-12-22] MEDS: Losartan 100 MG Tab PO SCH (08:04)
[2018-12-22] MEDS: Insulin Lispro 100 Units/ML 3 ML Vial SUBCUT SCH ×4 (08:05→21:19)
[2018-12-22] MEDS: EMPAGLIFLOZIN 25 MG PO SCH (08:06)
[2018-12-22] MEDS: SITAGLIPTIN PHOS PO SCH ×2 (08:06→19:43)
[2018-12-22] MEDS: METFORMIN HCL PO SCH ×2 (08:06→19:43)
[2018-12-22] MEDS: DALFAMPRIDINE 10 MG PO SCH ×2 (08:07→19:43)
[2018-12-22] MEDS: Menthol/Zinc Oxide Ointment 113 GM Tube TOP PRN ×2 (10:30→22:00)
[2018-12-22] MEDS: Enoxaparin 40 MG/0.4 ML Syringe SUBCUT SCH (11:36)
[2018-12-22] MEDS: Mirtazapine 15 MG Tab PO SCH (19:42)
[2018-12-22] MEDS: NORTRIPTYLINE PO SCH (19:44)
[2018-12-23] MEDS: Polyethylene Glycol 3350 Powder 17 GM Packet PO SCH (07:46)
[2018-12-23] MEDS: Aspirin 325 MG Tab.EC PO SCH (07:46)
[2018-12-23] MEDS: Metoprolol Tartrate 50 MG Tab PO SCH (07:46)
[2018-12-23] MEDS: DALFAMPRIDINE 10 MG PO SCH ×2 (07:47→19:41)
[2018-12-23] MEDS: Losartan 100 MG Tab PO SCH (07:47)
[2018-12-23] MEDS: buPROPion 150 MG Tab.ER PO SCH (07:47)
[2018-12-23] MEDS: Baclofen 10 MG Tab PO SCH ×2 (07:47→19:39)
[2018-12-23] MEDS: SITAGLIPTIN PHOS PO SCH ×2 (07:48→19:40)
[2018-12-23] MEDS: METFORMIN HCL PO SCH ×2 (07:48→19:40)
[2018-12-23] MEDS: Insulin Lispro 100 Units/ML 3 ML Vial SUBCUT SCH ×4 (07:51→21:15)
[2018-12-23] MEDS: EMPAGLIFLOZIN 25 MG PO SCH (07:51)
[2018-12-23] MEDS: Enoxaparin 40 MG/0.4 ML Syringe SUBCUT SCH (11:40)
[2018-12-23] MEDS: Mirtazapine 15 MG Tab PO SCH (19:39)
[2018-12-23] MEDS: NORTRIPTYLINE PO SCH (19:41)
[2018-12-24] MEDS: Metoprolol Tartrate 50 MG Tab PO SCH (07:58)
[2018-12-24] MEDS: Polyethylene Glycol 3350 Powder 17 GM Packet PO SCH (07:58)
[2018-12-24] MEDS: buPROPion 150 MG Tab.ER PO SCH (07:59)
[2018-12-24] MEDS: Aspirin 325 MG Tab.EC PO SCH (07:59)
[2018-12-24] MEDS: Losartan 100 MG Tab PO SCH (07:59)
[2018-12-24] MEDS: Baclofen 10 MG Tab PO SCH (07:59)
[2018-12-24] MEDS: Insulin Lispro 100 Units/ML 3 ML Vial SUBCUT SCH ×2 (08:00→12:51)
[2018-12-24] MEDS: EMPAGLIFLOZIN 25 MG PO SCH (08:00)
[2018-12-24] MEDS: DALFAMPRIDINE 10 MG PO SCH (08:00)
[2018-12-24] MEDS: METFORMIN HCL PO SCH (08:01)
[2018-12-24] MEDS: SITAGLIPTIN PHOS PO SCH (08:01)
--- NOTE | 2018-12-24 08:59 | PCM.DCSUM1 ---
Discharge Summary - Hospital Course Free Text/Narrative:: Patient initially presented to ER per EMS after a fall at home. Was s\p laminectomy x1 week, has had increased weakness as a result. Was having increased back pain when on backboard but that cleared once settled in to a bed. He typically is able to ambulate with a walker, reports had been going from wheelchair and only transferring short distances. Was found to have multiple pressure ulcers on buttocks and in sacral region. PT had felt he should be no weight bearing due to ulcers on feet, ordered special shoe. Patient does not report back pain or pain in his feet. Transferred to swing bed for ongoing physical therapy, wound care. Diagnosis: Stroke: No Modified Jorge A Scale: No Symptoms at All Modified [place] Scale Score: 0 - Discharge Data Discharge Date: 12/24/18 Discharge Disposition: Home, W Home Health Agency 06 Condition: Fair - Patient Summary/Data Complications: none Consults: Consultations 12/14/18 09:17 Consult to Case Management/Store Management Trainee [CONS] Routine PT Evaluation and Treatment [CONS] Routine Hospital Course: Patient has improved, is ambulating with rocker shoe on left foot with walker and standby assist. Ulcers showing some improvement. No back pain. Incision has healed well. Will be discharged home with home health. nursing to monitor blood pressure, administer wound care, med compliance, pain control, incision monitoring. PT and OT for strengthening and ADLs. Patient is homebound, unable to drive due to MS. Dr. Ellsworth to oversee home health plan of care. - Patient Instructions Diet: Usual Diet as Tolerated Activity: As Tolerated - Discharge Plan *PRESCRIPTION DRUG MONITORING PROGRAM REVIEWED*: No *COPY OF PRESCRIPTION DRUG MONITORING REPORT IN PATIENT CURTIS: No Home Medications: Home Meds Aspirin 325 mg PO DAILY 05/04/18 [History] Baclofen 10 mg PO BID 05/04/18 [History] Cholecalciferol (Vitamin D3) [Vitamin D3] 2,000 units PO DAILY 05/04/18 [History ] Dalfampridine [Ampyra] 10 mg PO BID 05/04/18 [History] Losartan [Cozaar] 100 mg PO DAILY 05/04/18 [History] Mirtazapine 30 mg PO DAILY 05/04/18 [History] Multivitamin with Minerals [Multiple Vitamin] 1 tab PO DAILY 05/04/18 [History] Nortriptyline HCl [Pamelor] 25 mg PO BEDTIME 05/04/18 [History] Zolpidem [Ambien] 10 mg PO BEDTIME PRN 05/04/18 [History] buPROPion [buPROPion XL] 150 mg PO DAILY 05/04/18 [History] sitaGLIPtin Phos/Metformin HCl [Janumet Xr 50-1,000 mg Tablet] 1 tab PO BID [History] Metoprolol Tartrate 100 mg PO DAILY 12/10/18 [History] Modafinil [Provigil] 200 mg PO DAILY 12/10/18 [History] [place]-3/DHA/Epa/Fish Oil [[place]-3 Fish Oil 1,000 MG Sfgl] 1,000 mg PO DAILY 02/21 [History] Polyethylene Glycol 3350 [MiraLAX] 17 gm PO DAILY 12/10/18 [History] Sennosides/Docusate Sodium [Senna-Docusate Sodium Tablet] 1 tab PO BID 12/10/18 [History] diazePAM [Valium] 5 mg PO Q6H PRN 12/10/18 [History] oxyCODONE HCl/Acetaminophen [Oxycodone-Acetaminophen 5-325] 1 - 2 tab PO Q4H PRN 12/10/18 [History] Carboxymethylcellulose Sodium [Refresh Tears] 15 ml EYEBOTH QID PRN 12/11/18 [ History] Mirabegron [Myrbetriq] 25 mg PO DAILY 12/11/18 [History] Empagliflozin [Jardiance] 25 mg PO DAILY 12/12/18 [History] Referrals: Alanna Londono PA [ED Midlevel Provider] - (Hospital follow up in 2 weeks ) - Discharge Summary/Plan Comment DC Time >30 min.: No - General Info Date of Service: 12/24/18 Admission Dx/Problem (Free Text: Weakness Fall Failure to Thrive. S/P Lumbar Laminectomy Functional Status: Reports: Pain Controlled, Tolerating Diet, Ambulating, Urinating - Review of Systems General: Reports: Weakness. Denies: Fever, Fatigue, Malaise HEENT: Reports: No Symptoms Pulmonary: Denies: Shortness of Breath, Cough Cardiovascular: Reports: Edema. Denies: Chest Pain, Lightheadedness Gastrointestinal: Denies: Abdominal Pain, Nausea, Vomiting Genitourinary: Reports: No Symptoms Musculoskeletal: Denies: Back Pain Skin: Reports: Other (wounds/incision) Neurological: Reports: Pre-Existing Deficit, Difficulty Walking, Weakness - Patient Data Vitals - Most Recent: Last Vital Signs Temp 99 F 12/23/18 19:46 Pulse 94 12/24/18 07:58 Resp 18 12/23/18 19:46 BP 130/76 12/24/18 07:59 Pulse Ox 97 12/23/18 19:46 Weight - Most Recent: 211 lb 14.4 oz Lab Results - Last 24 hrs: Laboratory Results - last 24 hr 12/23/18 12/23/18 12/23/18 Range/Units 11:39 17:19 21:12 POC Glucose 118 H 122 H 126 H (75-105) mg/dl 12/24/18 Range/Units 07:52 POC Glucose 92 (75-105) mg/dl Med Orders - Current: Current Medications Aspirin (Ecotrin) 325 mg PO DAILY [facility] Last Admin: 12/24/18 07:59 Dose: 325 mg Baclofen (Lioresal) 10 mg PO BID [facility] Last Admin: 12/24/18 07:59 Dose: 10 mg Bupropion HCl (Wellbutrin Xl) 150 mg PO DAILY [facility] Last Admin: 12/24/18 07:59 Dose: 150 mg Calamine/Phenol (Calmoseptine) 0 gm TOP QID PRN PRN Reason: Wound Care Last Admin: 12/22/18 22:00 Dose: 1 applic Diazepam (Valium.) 5 mg PO Q6H PRN PRN Reason: Muscle Spasm Enoxaparin Sodium (Lovenox) 40 mg SUBCUT Q24H [facility] Last Admin: 12/23/18 11:40 Dose: 40 mg Insulin Human Lispro (Humalog) 0 unit SUBCUT 0800,1200,1730,2100 [facility]; Protocol Last Admin: 12/24/18 08:00 Dose: Not Given Losartan Potassium (Cozaar) 100 mg PO DAILY [facility] Last Admin: 12/24/18 07:59 Dose: 100 mg Magnesium Hydroxide (Milk Of Magnesia) 30 ml PO BID PRN PRN Reason: Constipation Metoprolol Tartrate (Lopressor) 100 mg PO DAILY [facility] Last Admin: 12/24/18 07:58 Dose: 100 mg Mirtazapine (Remeron) 30 mg PO BEDTIME [facility] Last Admin: 12/23/18 19:39 Dose: 30 mg (Dalfampridine [ Ampyra] 10 Mg)*Pt Own Med* 10 mg PO BID [facility] Last Admin: 12/24/18 08:00 Dose: 10 mg (Sitagliptin Phos/Metformin Hcl [ Janumet Xr 50-1,000 Mg Tab]*Pt Own Med* 0 tab PO BID [facility] Last Admin: 12/24/18 08:01 Dose: 1,000 tab (Empagliflozin [ Jardiance] 25 Mg)*Pt Own Med* 25 mg PO DAILY [facility] Last Admin: 12/24/18 08:00 Dose: 25 mg Oxycodone/Acetaminophen (Percocet 325-5 Mg) 1 - 2 tab PO Q4H PRN PRN Reason: Pain Nortriptyline*Pt Own (Med*) 0 each PO BEDTIME [facility] Last Admin: 12/23/18 19:41 Dose: 1 each Polyethylene Glycol (Miralax) 17 gm PO DAILY [facility] Last Admin: 12/24/18 07:58 Dose: 17 gm Senna/Docusate Sodium (Senna Plus) 1 tab PO BID PRN PRN Reason: Constipation Sodium Chloride (Saline Flush) 10 ml FLUSH ASDIRECTED PRN PRN Reason: Keep Vein Open Sodium Chloride (Saline Flush) 10 ml FLUSH ASDIRECTED PRN PRN Reason: Keep Vein Open Zolpidem Tartrate (Ambien) 10 mg PO BEDTIME PRN PRN Reason: Insomnia Last Admin: 12/21/18 22:21 Dose: 10 mg Discontinued Medications Mirtazapine (Remeron) 30 mg PO DAILY [facility] Last Admin: 12/18/18 09:26 Dose: Not Given - Exam General: Reports: Alert, Oriented HEENT: Reports: Mucous Membr. Moist/[place] Neck: Reports: Supple Lungs: Reports: Clear to Auscultation, Normal Respiratory Effort Cardiovascular: Reports: Regular Rate, Regular Rhythm GI/Abdominal Exam: Normal Bowel Sounds, Soft, Non-Tender Extremities: Pedal Edema (1+, bandage intact to left foot, ulcers noted to lateral feet. ) Skin: Reports: Warm, Dry Wound/Incisions: Reports: Dressing Dry and Intact. Denies: Erythema Neurological: Reports: No New Focal Deficit
[2018-12-24] MEDS: Enoxaparin 40 MG/0.4 ML Syringe SUBCUT SCH (12:50)
== END 2018-12-24 17:00 | disposition home health service (06) | DRG 561 ==
LOC: CC.MS 08:34 → UNDOADMIN 08:36
PROVIDERS: ADMIT Family Medicine; ATTEND Family Medicine
DX: Z47.89 Encounter for other orthopedic aftercare (principal); R62.7 Adult failure to thrive; Z79.82 Long term (current) use of aspirin; L89.309 Pressure ulcer of unspecified buttock, unspecified stage; G35 Multiple sclerosis; E11.621 Type 2 diabetes mellitus with foot ulcer; R53.1 Weakness; L97.519 Non-pressure chronic ulcer of other part of right foot with unspecified severity; L97.529 Non-pressure chronic ulcer of other part of left foot with unspecified severity; W18.30XA Fall on same level, unspecified, initial encounter; L89.159 Pressure ulcer of sacral region, unspecified stage; Z79.899 Other long term (current) drug therapy
CPT/HCPCS: 82962; 97110-GP; 97116-GP; 97530-GP; 97535-GP; 97597-GP; A9270-GY; J1650